=== PATIENT | male | born 1975 | race African-American/Black ===

== ENCOUNTER 2017-02-21 18:48 | Inpatient (IN) | payer MEDICAID, OTHER ==
[~2017-02-21] VITALS: Ht 180.3 cm; Wt 105.6 kg
[2017-02-21] MEDS ORDERED: ASPI-664 PO (20:14)
[2017-02-21] MEDS ORDERED: SOD CHLORIDE 0.9% 1,000 ML IV STA (20:17)
[2017-02-21] MEDS ORDERED: KETOROLAC 15 MG INJ IV STA (20:17)
[2017-02-21] MEDS ORDERED: LORAZEPAM 0.5 MG TAB PO ONE (20:30)
[2017-02-21] MEDS ORDERED: NICARDipine HCL 30 MG CAPSULE PO ONE ×2 (20:30→23:00)
[2017-02-21] MEDS ORDERED: NITROGLYCERIN (SL) 0.4 MG TAB SL ONE (20:30)
[2017-02-21] MEDS ORDERED: ASPIRIN 81 MG TAB PO ONE (20:30)
--- NOTE | 2017-02-21 20:35 | RADRPT ---
PROCEDURE: XR Chest. CLINICAL INDICATION: Chest and abdomen pain. TECHNIQUE: Single frontal view. COMPARISON: 02/13/2012. FINDINGS: The lungs are clear. The heart size is normal. There is no pleural effusion. There is no pneumothorax. IMPRESSION: 1. Normal chest radiograph. 2. No change from 02/13/2012. RPTAT: QQ .Ignacio Colmenares MD, MD Date Time Electronically viewed and signed by .Ignacio Colmenares MD, on 02/21/2017 20:35 .R/
[2017-02-21 20:48] LABS: BASOPHIL # 0.1 10^3/ul (0.0-0.1); BASOPHILS % 0.5 % (0.0-2.0); EOSINOPHILS # 0.2 10^3/ul (0.0-0.5); EOSINOPHILS % 1.7 % (0.0-7.0); HEMATOCRIT 45.6 % (42.0-52.0); HEMOGLOBIN 14.6 g/dl (14.0-18.0); LYMPHOCYTES # 2.6 10^3/ul (0.8-2.9); LYMPHOCYTES % 25.3 % (15.0-51.0); MEAN CORPUSCULAR HEMOGLOBIN 27.8 pg (29.0-33.0); MEAN CORPUSCULAR VOLUME 86.7 fl (82.0-101.0); MEAN PLATELET VOLUME 10.8 fl (7.4-10.4); MONOCYTE # 0.7 10^3/ul (0.3-0.9); MONOCYTES % 6.6 % (0.0-11.0); NEUTROPHIL # 6.9 10^3/ul (1.6-7.5); NEUTROPHILS % 65.6 % (39.0-77.0); PLATELET COUNT 234 10^3/UL (140-415); RED BLOOD COUNT 5.26 10^6/ul (4.70-6.10); RED CELL DISTRIBUTION WIDTH 13.3 % (11.5-14.5); WHITE BLOOD COUNT 10.5 10^3/ul (4.8-10.8)
[2017-02-21 21:05] LABS: ALANINE AMINOTRANSFERASE 53 IU/L (13-69); ALBUMIN 4.6 g/dl (3.3-4.9); ALBUMIN/GLOBULIN RATIO 1.48; ALKALINE PHOSPHATASE 105 IU/L (42-121); ANION GAP 15 (8-16); ASPARTATE AMINO TRANSFERASE 34 IU/L (15-46); BILIRUBIN,INDIRECT 0.2 mg/dl (0-1.1); BILIRUBIN,TOTAL 0.2 mg/dl (0.2-1.3); BLOOD UREA NITROGEN 10 mg/dl (7-20); CALCIUM 9.4 mg/dl (8.4-10.2); CARBON DIOXIDE 26 mmol/L (21-31); CHLORIDE 102 mmol/L (97-110); CREATININE 0.98 mg/dl (0.61-1.24); GLUCOSE 186 mg/dl (70-220); POTASSIUM 3.6 mmol/L (3.5-5.1); SODIUM 139 mmol/L (135-144); TOTAL PROTEIN 7.7 g/dl (6.1-8.1)
[2017-02-21 21:23] LABS: TROPONIN-I < 0.012 ng/ml (0.00-0.12)
[2017-02-21] MEDS ORDERED: ENALAPRILAT 1.25 MG INJ IV ONE (22:00)
--- NOTE | 2017-02-21 22:57 | ERA ---
ER Documentation Chief Complaint Date/Time DATE: 02/21/17 TIME: 22:49 Chief Complaint CP dizziness started at 1930 HPI 41-year-old man complains of elevated blood pressure, chest discomfort fingertip size to the right anterior chest, and dizziness 1 day. He states he has a long history of hypertension but has not used antihypertensives for over a year. Patient suffered an MS about 5 years and underwent PCI with stent placement. Patient states he uses aspirin daily. He denies calf or leg swelling, no shortness of breath, no loss of consciousness, no cough, no fevers or chills, no vomiting or diarrhea. ROS All systems reviewed and are negative except as per history of present illness. Medications Home Meds Reported Medications Aspirin* (Aspirin* EC) 81 Mg Tablet.dr, 81 MG PO DAILY, TAB 02/21/17 Allergies Allergies: Coded Allergies: iodine (Verified Allergy, Unknown, 02/21/17) PMhx/Soc CAD, MS, hypertension History of Surgery: Yes (S/P LEFT HEART CATH 2011) Anesthesia Reaction: No Hx Neurological Disorder: No Hx Respiratory Disorders: No Hx Cardiac Disorders: Yes (HTN, high cholesterol) Hx Psychiatric Problems: No Hx Miscellaneous Medical Probl: No Hx Alcohol Use: Yes Hx Substance Use: Yes (MARIJUANA quit 2011) Hx Tobacco Use: Yes (CIGARETTES quit 2011) Smoking Status: Former smoker FmHx Family History: No diabetes Physical Exam Vitals Vital Signs Date Time Temp Pulse Resp B/P Pulse Ox O2 Delivery O2 Flow Rate FiO2 02/21/17 21:31 101 16 199/113 99 Room Air 02/21/17 18:51 99.3 117 20 241/109 98 Physical Exam GENERAL: Well-developed, well-nourished, appears anxious, afebrile, hypertensive HEENT: Moist mucous membranes, pink conjunctiva, no cervical spine tenderness or step-off deformities, no goiter, no jaundice or icterus, extraocular movements intact without pain. No submandibular induration, and no pharyngeal erythema NEURO: Alert and oriented 3, cranial nerves II through XII intact bilaterally, pupils equal round reactive to light, no focal deficits or facial asymmetry, sensation intact distally Strength 5/5 in upper and lower extremities bilaterally CARDIAC: Tachycardic and regular, no murmurs rubs or gallops LUNGS: Clear bilaterally no wheezing crackles or stridor ABDOMEN: Soft nontender, no guarding, no rigidity, no rebound, no psoas sign no obturator sign. Normoactive bowel sounds SKIN: Warm and dry to touch, no abrasions, contusions, or hematomas, no lacerations, no ecchymosis, no target lesions, and without ulcers EXTREMITIES: No clubbing cyanosis or edema, calves are bilaterally symmetrical, no Homans sign, no popliteal cord sign. Distal pulses equal and bilateral PSYCH: Anxious Result Diagram: 02/21/17202902/21/172029 Results 24 hrs Laboratory Tests Test 02/21/17 20:30 White Blood Count 10.510^3/ul Red Blood Count 5.2610^6/ul Hemoglobin 14.6g/dl Hematocrit 45.6% Mean Corpuscular Volume 86.7fl Mean Corpuscular Hemoglobin 27.8pg Mean Corpuscular Hemoglobin Concent 32.0g/dl Red Cell Distribution Width 13.3% Platelet Count 61370^3/UL Mean Platelet Volume 10.8fl Neutrophils % 65.6% Lymphocytes % 25.3% Monocytes % 6.6% Eosinophils % 1.7% Basophils % 0.5% Nucleated Red Blood Cells % 0.0/100WBC Neutrophils # 6.910^3/ul Lymphocytes # 2.610^3/ul Monocytes # 0.710^3/ul Eosinophils # 0.210^3/ul Basophils # 0.110^3/ul Nucleated Red Blood Cells # 0.010^3/ul Sodium Level 139mmol/L Potassium Level 3.6mmol/L Chloride Level 102mmol/L Carbon Dioxide Level 26mmol/L Anion Gap 15 Blood Urea Nitrogen 10mg/dl Creatinine 0.98mg/dl Glucose Level 186mg/dl Calcium Level 9.4mg/dl Total Bilirubin 0.2mg/dl Direct Bilirubin 0.00mg/dl Indirect Bilirubin 0.2mg/dl Aspartate Amino Transf (AST/SGOT) 34IU/L Alanine Aminotransferase (ALT/SGPT) 53IU/L Alkaline Phosphatase 105IU/L Troponin I < 0.012ng/ml Total Protein 7.7g/dl Albumin 4.6g/dl Globulin 3.10g/dl Albumin/Globulin Ratio 1.48 Lipase 90U/L Current Medications Medications (Trade) Dose Ordered Sig/Josiah Route PRN Reason Start Time Stop Time Status Last Admin Dose Admin Nicardipine HCl (Cardene) 30 mg ONCE ONCE PO 02/21/17 20:30 02/21/17 20:31 DC 02/21/17 20:47 Nitroglycerin (Nitroglycerin (Sl Tab) 0.4 Mg) 1 tab ONCE ONCE SL 02/21/17 20:30 02/21/17 20:31 DC 02/21/17 20:47 Aspirin (Aspirin) 162 mg ONCE ONCE PO 02/21/17 20:30 02/21/17 20:31 DC 02/21/17 20:47 Lorazepam 0.5 mg 0.5 mg ONCE ONCE PO 02/21/17 20:30 02/21/17 20:31 DC 02/21/17 20:47 Sodium Chloride (NS) 1,000 ml @ 1,000 mls/hr Q1H STAT IV 02/21/17 20:17 02/21/17 21:16 DC 02/21/17 20:46 Ketorolac Tromethamine (Toradol) 15 mg ONCE STAT IV 02/21/17 20:17 02/21/17 20:19 DC 02/21/17 20:46 Enalaprilat (Vasotec Iv) 1.25 mg ONCE ONCE IV 02/21/17 22:00 02/21/17 22:01 DC 02/21/17 22:00 Procedures/[facility] IV line was established patient was placed on tin worker rhythm strip revealed a sinus tachycardia at 100 bpm. Patient was afebrile. EKG performed, read by me revealed a sinus tachycardia at 115 bpm, normal axis, narrow QRS complex with diffuse deep T-wave inversions and LVH and lead I, no concerning ST elevations or depressions noted. Chest X-ray 1V Interpreted by me: Soft Tissue: No acute abnormalities Bones: No acute abnormalities Mediastinum/Cardiac Silhouette/Lungs: No acute abnormalities I administered aspirin 162 mg p.o. for cardioprotective measures, nitroglycerin 0.4 mg sublingual, nicardipine 30 mg p.o. for hypertensive emergency, and lorazepam 0.5 mg p.o. for anxiety. Patient had continued hypertension with diastolic blood pressure over 110 mmHg, I treated him with enalapril 1.25 mg IV 1 and later with another dose of nicardipine 30 mg p.o. CBC and electrolytes were normal, liver function tests were normal, troponin was negative. Patient also received 1 L normal saline intravenously and Toradol 15 mg IV. Critical Care: Time: 43 minutes, this was time separate from other billable procedures. Treatments/Evaluations: Close monitoring and treatment of unstable vital signs, cardiorespiratory, and neurologic status, while maintaining tight balance of fluid, respiratory, and cardiac interventions. Patient will be admitted to telemetry setting for continued medical management cardiology consultation. Departure Diagnosis: Primary Impression: Hypertensive emergency Additional Impressions: CAD (coronary artery disease) Qualified Code: I25.10 - Coronary artery disease involving makah heart, angina presence unspecified, unspecified vessel or lesion type Chest pain Qualified Code: R07.9 - Chest pain, unspecified type Condition: GIANCARLO Scruggs MD Feb 21, 2017 22:57
[2017-02-21 23:14] VITALS: TEMP 99.3
[2017-02-22] VITALS (12 sets, daily range): BP systolic 138–170; BP diastolic 80–100; PULSE 72–111; RESP 18–20; Ht 180.3 cm; Wt 105.6 kg
[2017-02-22] MEDS ORDERED: ONDANSETRON 4 MG INJ IV PRN (01:30)
[2017-02-22] MEDS ORDERED: morphine 2 MG INJ IV PRN (01:30)
[2017-02-22] MEDS ORDERED: NITROGLYCERIN (SL) 0.4 MG TAB SL PRN (01:30)
[2017-02-22] MEDS: METOPROLOL 25 MG TAB PO SCH ×3 (01:43→22:06)
[2017-02-22 06:36] LABS: BASOPHIL # 0.1 10^3/ul (0.0-0.1); BASOPHILS % 0.6 % (0.0-2.0); EOSINOPHILS # 0.2 10^3/ul (0.0-0.5); EOSINOPHILS % 1.5 % (0.0-7.0); HEMATOCRIT 44.4 % (42.0-52.0); HEMOGLOBIN 13.8 g/dl (14.0-18.0); LYMPHOCYTES # 3.6 10^3/ul (0.8-2.9); LYMPHOCYTES % 35.5 % (15.0-51.0); MEAN CORPUSCULAR HGB CONC 31.1 g/dl (32.0-37.0); MEAN CORPUSCULAR VOLUME 86.9 fl (82.0-101.0); MEAN PLATELET VOLUME 10.1 fl (7.4-10.4); MONOCYTE # 0.6 10^3/ul (0.3-0.9); MONOCYTES % 6.4 % (0.0-11.0); NEUTROPHIL # 5.6 10^3/ul (1.6-7.5); NEUTROPHILS % 55.7 % (39.0-77.0); PLATELET COUNT 213 10^3/UL (140-415); RED BLOOD COUNT 5.11 10^6/ul (4.70-6.10); RED CELL DISTRIBUTION WIDTH 13.8 % (11.5-14.5)
--- NOTE | 2017-02-22 06:58 | HP ---
Date/Time of Note Date/Time of Note DATE: 02/22/17 TIME: 06:53 Assessment/Plan VTE Prophylaxis VTE Prophylaxis Intervention: heparin Lines/Catheters IV [facility]from [facility] Saline Lock Urinary Cath still in place: No Assessment/Plan Assessment/Plan 1. Chest pain, rule out ACS -Continue telemetry monitoring -Supplemental oxygen, aspirin, beta-win, statin with as needed nitro morphine -2D echo and cardiology consult 2. Hypertensive urgency: BP better controlled now -Continue antihypertensives with adjustment as needed HPI/ROS Admit Date/Time Admit Date/Time Feb 21, 2017 at 22:06 Hx of Present Illness This is a 41-year-old male with a history of CAD with stent 2012 and hypertension who presented to the emergency department complaining of chest pain 1 day. Pain is slightly right-sided with no radiation. Reported associated lightheadedness and diaphoresis. When he presented to the ER his blood pressure was 241/109. He has not been taking his antihypertensive for over a year. He has however been taking low- dose aspirin daily. EKG shows no ST-T wave abnormalities and first troponin is negative. Chest x-ray was no active cardiopulmonary disease. PMH/Family/Social Past Medical History Medical History: coronary artery disease, hypertension Past Surgical History Past Surgical Hx: other (Coronary artery stent placement) Social History Alcohol Use: none Smoking Status: Former smoker Drug Use: none Exam/Review of Systems Vital Signs Vitals Vital Signs Date Time Temp Pulse Resp B/P Pulse Ox O2 Delivery O2 Flow Rate FiO2 02/22/17 04:25 82 02/22/17 04:00 98.0 18 138/80 Room Air 02/21/17 23:34 98 Intake and Output 02/21/17 02/21/17 02/22/17 15:00 23:00 07:00 Intake Total 0 ml Balance 0 ml Exam Constitutional: alert, oriented, well developed Head: atraumatic, normocephalic Eyes: EOMI, PERRL Respiratory: clear to auscultation, normal air movement Cardiovascular: nl pulses, regular rate and rhythm Gastrointestinal: soft Extremities: normal pulses Labs Result Diagram: 02/22/17 0604 02/21/17 2030 Medications Medications Current Medications Metoprolol Tartrate (Lopressor) 25 mg BID PO Last administered on 02/22/17t 01 :43; Admin Dose 25 MG; Start 02/22/17 at 01:30 Aspirin (Aspirin) 81 mg DAILY PO ; Start 02/22/17 at 09:00 Nitroglycerin (Nitroglycerin (Sl Tab) 0.4 Mg) 1 tab Q5M PRN SL ANGINA; Start 02/22/17 at 01:30 Morphine Sulfate (morphine) 2 mg Q4H PRN IV PAIN; Start 02/22/17 at 01:30 Ondansetron HCl (Zofran Inj) 4 mg Q6H PRN IV NAUSEA AND/OR VOMITING; Start at 01:30 Heparin Sodium (Porcine) (Heparin (5000 Units/0.5 ml)) 5,000 unit BID SC ; Start 02/22/17 at 09:00 Clonidine (Catapres) 0.1 mg Q6H PRN PO ELEVATED BLOOD PRESSURE; Start at 01:30 FARHAN GOTTLIEB MD Feb 22, 2017 06:58
[2017-02-22 07:14] LABS: ALBUMIN 3.8 g/dl (3.3-4.9); ALBUMIN/GLOBULIN RATIO 1.15; BILIRUBIN,INDIRECT 0.4 mg/dl (0-1.1); BILIRUBIN,TOTAL 0.4 mg/dl (0.2-1.3); CALCIUM 9.5 mg/dl (8.4-10.2); CREATININE 0.84 mg/dl (0.61-1.24); MAGNESIUM 1.9 mg/dl (1.7-2.5); POTASSIUM 3.9 mmol/L (3.5-5.1); TOTAL PROTEIN 7.1 g/dl (6.1-8.1)
[2017-02-22 07:15] LABS: CHOL/HDL RATIO 7.3 RATIO; PHOSPHORUS 3.5 mg/dl (2.5-4.9)
[2017-02-22] MEDS: ASPIRIN 81 MG TAB PO SCH (08:45)
[2017-02-22] MEDS: HEPARIN 5,000 UNIT/0.5 ML VIAL SC SCH ×2 (08:56→22:07)
[2017-02-22] MEDS ORDERED: GLUCAGON 1 MG INJ IM PRN (11:00)
[2017-02-22] MEDS ORDERED: DEXTROSE 50% 50 ML SYRINGE IV PRN ×2 (11:00)
[2017-02-22] MEDS ORDERED: GLUCOSE GEL 15 GRAM TUBE PO PRN ×2 (11:00)
[2017-02-22] MEDS ORDERED: GLUCOSE GEL 15 GRAM TUBE BUCCAL PRN (11:00)
[2017-02-22] MEDS ORDERED: LISINOPRIL 5 MG TAB PO SCH (11:30)
[2017-02-22] MEDS: INSULIN ASPART [NOVOLOG] 3 ML PEN SC SCH ×3 (11:50→22:18)
--- NOTE | 2017-02-22 15:23 | PN ---
Date/Time of Note Date/Time of Note DATE: 02/22/17 TIME: 15:22 Assessment/Plan VTE Prophylaxis VTE Prophylaxis Intervention: heparin Lines/Catheters [facility] Saline Lock Urinary Cath still in place: No Assessment/Plan Chief Complaint/Hosp Course Patient is a 41-year-old -[place] male with a past medical history of coronary artery disease with stent placement 2011 and uncontrolled hypertension who presents to the ED complaining of chest pain for 1 day on the right side. Patient admitted for chest pain and hypertensive urgency Assessment and plan Chest pain Hypertensive urgency Medical noncompliance Coronary artery disease -Cardiology consulted, recommendations appreciated -Patient stated that he ran out of insurance which is why he stopped his blood pressure medication -Restart beta-win, ALMA inhibitor. As needed medications for elevated blood pressure will adjust dosing as needed -Cholesterol elevated, LDL not at goal, restart atorvastatin -Patient's hemoglobin A1c is high, diabetic crm consultant has seen patient, will follow, likely DC with metformin -Continue troponin troponins, negative for now -Echocardiogram -Counseled patient on affordability of generic medications Problems: Subjective 24 Hr Interval Summary Free Text/Dictation no acute complaints Exam/Review of Systems Vital Signs Vitals Vital Signs Date Time Temp Pulse Resp B/P Pulse Ox O2 Delivery O2 Flow Rate FiO2 02/22/17 12:59 98.5 83 19 170/100 97 02/22/17 04:00 Room Air Intake and Output 02/21/17 02/21/17 02/22/17 14:59 22:59 06:59 Intake Total 0 ml Balance 0 ml Exam Physical exam General: Patient is laying in bed and answers questions appropriately Mentation: Patient is alert and oriented 4, Head: Normocephalic atraumatic Eyes: EOMI, pupils reactive to light Neck: Supple, nontender, midline Respiratory: Clear to auscultation bilaterally Cardiovascular: regular rate, no obvious murmurs Gastrointestinal: non-tender to palpation, bowel sounds heard. Neurological: Moves all extremities spontaneously Skin: No new skin lesions Results Result Diagram: 02/22/17 0604 02/22/17 0604 Results 24 hrs Laboratory Tests Test 02/21/17 20:30 02/22/17 02:28 02/22/17 06:04 02/22/17 07:39 White Blood Count 10.5 10.0 Red Blood Count 5.26 5.11 Hemoglobin 14.6 13.8 L Hematocrit 45.6 44.4 Mean Corpuscular Volume 86.7 86.9 Mean Corpuscular Hemoglobin 27.8 L 27.0 L Mean Corpuscular Hemoglobin Concent 32.0 31.1 L Red Cell Distribution Width 13.3 13.8 Platelet Count 234 213 Mean Platelet Volume 10.8 H 10.1 Neutrophils % 65.6 55.7 Lymphocytes % 25.3 35.5 Monocytes % 6.6 6.4 Eosinophils % 1.7 1.5 Basophils % 0.5 0.6 Nucleated Red Blood Cells % 0.0 0.0 Neutrophils # 6.9 5.6 Lymphocytes # 2.6 3.6 H Monocytes # 0.7 0.6 Eosinophils # 0.2 0.2 Basophils # 0.1 0.1 Nucleated Red Blood Cells # 0.0 0.0 Sodium Level 139 139 Potassium Level 3.6 3.9 Chloride Level 102 105 Carbon Dioxide Level 26 28 Anion Gap 15 10 # Blood Urea Nitrogen 10 8 Creatinine 0.98 0.84 Glucose Level 186 117 # Calcium Level 9.4 9.5 Total Bilirubin 0.2 0.4 Direct Bilirubin 0.00 0.00 Indirect Bilirubin 0.2 0.4 Aspartate Amino Transf (AST/SGOT) 34 28 Alanine Aminotransferase (ALT/SGPT) 53 47 Alkaline Phosphatase 105 90 Troponin I < 0.012 < 0.012 Total Protein 7.7 7.1 Albumin 4.6 3.8 Globulin 3.10 3.30 H Albumin/Globulin Ratio 1.48 1.15 Lipase 90 Hemoglobin A1c 7.5 H Phosphorus Level 3.5 Magnesium Level 1.9 Triglycerides Level 111 Cholesterol Level 199 LDL Cholesterol, Calculated 150 HDL Cholesterol 27 Cholesterol/HDL Ratio 7.3 Bedside Glucose 116 Test 02/22/17 11:03 02/22/17 12:06 Troponin I < 0.012 Bedside Glucose 122 Medications Medications Current Medications Metoprolol Tartrate (Lopressor) 25 mg BID PO Last administered on 02/22/17 08 :45; Admin Dose 25 MG; Start 02/22/17 at 01:30 Aspirin (Aspirin) 81 mg DAILY PO Last administered on 02/22/17 08:45; Admin Dose 81 MG; Start 02/22/17 at 09:00 Nitroglycerin (Nitroglycerin (Sl Tab) 0.4 Mg) 1 tab Q5M PRN SL ANGINA; Start 02/22/17 at 01:30 Morphine Sulfate (morphine) 2 mg Q4H PRN IV PAIN; Start 02/22/17 at 01:30 Ondansetron HCl (Zofran Inj) 4 mg Q6H PRN IV NAUSEA AND/OR VOMITING; Start at 01:30 Heparin Sodium (Porcine) (Heparin (5000 Units/0.5 ml)) 5,000 unit BID SC Last administered on 02/22/17t 08:56; Admin Dose 5,000 UNIT; Start 02/22/17 at 09: 00 Clonidine (Catapres) 0.1 mg Q6H PRN PO ELEVATED BLOOD PRESSURE; Start at 01:30 Diagnostic Test (Pha) (Accu-Chek) 1 ea 02 XX ; Start 02/23/17 at 02:00 Diagnostic Test (Pha) (Accu-Chek) 1 ea 02 XX ; Start 02/23/17 at 02:00 Miscellaneous Information 1 ea NOTE XX ; Start 02/22/17 at 11:00 Glucose (Glutose) 15 gm Q15M PRN PO DECREASED GLUCOSE; Start 02/22/17 at 11:00 Glucose (Glutose) 22.5 gm Q15M PRN PO DECREASED GLUCOSE; Start 02/22/17 at 11: 00 Dextrose (D50w Syringe) 25 ml Q15M PRN IV DECREASED GLUCOSE; Start 02/22/17 at 11:00 Dextrose (D50w Syringe) 50 ml Q15M PRN IV DECREASED GLUCOSE; Start 02/22/17 at 11:00 Glucagon (Glucagen) 1 mg Q15M PRN IM DECREASED GLUCOSE; Start 02/22/17 at 11: 00 Glucose (Glutose) 15 gm Q15M PRN BUCCAL DECREASED GLUCOSE; Start 02/22/17 at 11:00 Atorvastatin Calcium (Lipitor) 40 mg HS PO ; Start 02/22/17 at 21:00 Lisinopril (Zestril) 20 mg DAILY PO ; Start 02/23/17 at 09:00 Lisinopril (Zestril) 15 mg ONCE ONCE PO ; Start 02/22/17 at 15:30; Stop 02/22 at 15:31 Labetalol HCl (Labetalol) 10 mg Q4 PRN IV SBP>160; Start 02/22/17 at 15:30 GIANCARLO BELL Feb 22, 2017 15:23
[2017-02-22] MEDS ORDERED: LISINOPRIL 5 MG TAB PO ONE (15:30)
[2017-02-22] MEDS ORDERED: LABETALOL HCL 20MG INJ IV PRN (15:30)
[2017-02-22] MEDS ORDERED: hydrALAzine 20 MG INJ IV PRN (17:30)
--- NOTE | 2017-02-22 21:10 | RADRPT ---
Echocardiogram Report Patient Name: SHER LUCIO Gender: Male Date: 1975 Study Date: 22-Feb-2017 Plant Maintenance Technician: Nicole [facility] Location: [address] Ref. Physician: FARHAN GOTTLIEB Quality: Adequate Procedures: Transthoracic echocardiogram with complete 2D, M-Mode, and doppler examination. Indications: Chest Pain. 2D/M Mode Doppler Measurement Value Normal Ranges Measurement Value Normal Ranges LVIDd 2D 4.4 3.5 - 5.6 cm AV Peak Yoseph 1.4 m/sec LVIDs 2D 3.0 2.1 - 4.1 cm AV Peak PG 8.0 mmHg FS 2D 32.0 % LVOT Peak Yoseph 1.1 m/sec LVPWd 2D 1.5 0.6 - 1.1 cm LVOT Peak PG 5.0 mmHg IVSd 2D 1.5 0.6 - 1.1 cm MV E Peak Yoseph 0.8 m/sec IVS/LVPW 2D 1.0 MV A Peak Yoseph 1.2 m/sec AoR Diam 2D 3.4 2.0 - 3.7 cm MV E/A 0.7 LA/Ao 2D 1 0 - 1 MV Decel Time 116 msec EDV 2D 85.2 cm3 MV E/A 0.7 ESV 2D 26.7 cm3 TR Peak Yoseph 2.4 m/sec LA Dimen 2D 4.2 2.3 - 4.0 cm TR Peak PG 24.0 mmHg RVSP 27.0 mmHg Findings Left Ventricle: Lower limits of normal systolic function. Normal left ventricular cavity size. Ejection fraction is visually estimated at 5055 %. Abnormal Diastolic Function. Right Ventricle: Normal right ventricular size. Normal right ventricular systolic function. Left Atrium: There is mild enlargement of left atrium. Right Atrium: The right atrium is normal in size. Mitral Valve: Normal appearance and function of the mitral valve with trace physiologic regurgitation. Aortic Valve: Normal appearance of the aortic valve. No significant aortic stenosis or insufficiency. Tricuspid Valve: Normal appearance of the tricuspid valve. Estimated peak PA systolic pressure 27 mmHg. There is mild tricuspid regurgitation. Pericardium: Normal pericardium with no significant pericardial effusion. Aorta: Normal aortic root. IVC: Normal size and normal respiratory collapse consistent with normal right atrial pressure. Conclusions 1.Lower limits of normal systolic function. Normal left ventricular cavity size. Ejection fraction is visually estimated at 50-55 %. Abnormal Diastolic Function. 2.There is mild enlargement of left atrium. 3.Normal appearance and function of the mitral valve with trace physiologic regurgitation. 4.Normal appearance of the tricuspid valve. Estimated peak PA systolic pressure 27 mmHg. There is mild tricuspid regurgitation. Electronically Signed By: Reynaldo Levi 22-Feb-2017 21:09:21 -0700 Patient Name: SHER LUCIO Study Date: 22-Feb-2017 [id number]
[2017-02-22] MEDS: ATORVASTATIN 40 MG TAB PO SCH (22:04)
[2017-02-22] MEDS: LISINOPRIL 20 MG TAB PO SCH (22:05)
[2017-02-22] MEDS: ACCU-CHEK XX SCH (22:21)
[2017-02-23] VITALS (13 sets, daily range): BP systolic 144–174; BP diastolic 84–99; PULSE 62–75; RESP 17–18
[2017-02-23] MEDS ORDERED: ACCU-CHEK XX SCH (02:00)
--- NOTE | 2017-02-23 05:30 | CONS ---
DATE OF ADMISSION: 02/21/2017 DATE OF CONSULTATION: 02/22/2017 TYPE OF CONSULTATION: Cardiology. REASON FOR CONSULTATION: Chest pain, assess for acute coronary syndrome. REQUESTING PHYSICIAN: Dr. Renee from the hospital service. HISTORY OF PRESENT ILLNESS: Mr. Weathers is a 41-year-old male with a history of coronary artery disease, prior myocardial infarction in 2011 with subsequent stents, hypertension, who initially presented with complaints of right-sided chest pain occurring at rest, described as a stabbing sensation with some radiation to his right fingers with numbness and tingling. Upon arrival, temperature 99.3, blood pressure markedly elevated at 241/109, pulse 70, respiratory rate 20, saturating 98%. Patient's labs showed white count 10.5, platelet count 234. Sodium 139, potassium 3.6, creatinine 0.98. BUN 10. Troponin negative. AST 34, ALT 53, lipase 90. Chest x-ray negative. There is no electrocardiogram for my review at this time. The patient denies ongoing chest pain at this time. The patient's blood pressures continue to remain significantly elevated at 160 to 170s systolic. PAST MEDICAL HISTORY: As above in HPI. MEDICATIONS CURRENTLY IN HOSPITAL: 1. Lisinopril 20 mg daily. 2. Lipitor 40 mg at bedtime. 3. Labetalol. 4. Heparin 5000 subQ b.i.d. 5. Metoprolol 25 mg p.o. b.i.d. 6. Morphine p.r.n. 7. Zofran p.r.n. ALLERGIES: IODINE. SOCIAL HISTORY: No current tobacco, ETOH or illicit drug use. FAMILY HISTORY: No history of sudden cardiac or early CAD. REVIEW OF SYSTEMS: As above in HPI. CONSTITUTIONAL: No fevers, chills. PULMONARY: No current shortness of breath. CARDIOVASCULAR: No current chest pain, but on admit. GASTROINTESTINAL: No vomiting. GENITOURINARY: No hematuria. MUSCULOSKELETAL: Degenerative joint disease. PSYCHIATRIC: The patient denies depression. NEUROLOGIC: No documented history of CVA. PHYSICAL EXAMINATION VITAL SIGNS: Temperature of 98.6, blood pressure most recently 161/90, pulse 84 , respiratory rate 19, satting 97%. GENERAL: The patient is alert, awake, in no acute distress. NECK: JVP approximately 8 to 9 cm water. CHEST: Fair air movement throughout. HEART: Regular rate and rhythm. Normal S1, S2, I/ systolic murmur, nondisplaced PMI. ABDOMEN: Positive bowel sounds, soft. EXTREMITIES: No pitting edema, 1+ pulses bilaterally, posterior tibial. LABORATORIES: As above in HPI with most recently from today, sodium 139, creatinine 0.84, BUN of 8. Troponin negative x3. White blood cell count 10, hemoglobin 13.8, platelet count of 213. IMAGING STUDIES: As above in HPI. No further imaging studies for my review at this time. ELECTROCARDIOGRAM: Not available in chart for my review at this time. IMPRESSION: 1. Chest pain, assess for acute coronary syndrome. 2. Hypertensive urgency emergency. 3. History of prior percutaneous transluminal coronary angiography and stent placement in 2011. 4. History of myocardial infarction in 2011. 5. Dyslipidemia with low HDL. RECOMMENDATIONS: 1. At this time, would maintain the patient on telemetry monitoring to follow rhythm and rate closely. 2. Would check serial EKGs to assess for any significant ongoing changes, an EKG in the morning, EKG for chanes in rhythm or development of chest pain 3. Continue the patient's current Zestril with further up titration and beta win as necessary to improve overall systolic blood pressure control. 4. Continue the patient's current statin therapy. 5. Would place the patient on aspirin. 6. We will follow the patient's 2D echo done for assessment of ejection fraction, wall motion and major valve abnormalities and pending the results of the patient's EKG analysis and 2D echo, the patient will likely benefit from a cardiac stress test, which can likely be done as an outpatient versus inpatient depending on ongoing features. Thank you for allowing me to take part in the care of this patient. I will continue to follow along very closely with you. Further recommendations will be made as the patient progresses through his inpatient hospital course. Dictated By: ANGEL CARRERO/MAGAN Conf#: [id number] DID#: [id number] CC: FARHAN RENEE MD;*EndCC* MTDD
[2017-02-23 06:35] LABS: BASOPHIL # 0.1 10^3/ul (0.0-0.1); BASOPHILS % 0.5 % (0.0-2.0); EOSINOPHILS # 0.2 10^3/ul (0.0-0.5); HEMATOCRIT 45.9 % (42.0-52.0); HEMOGLOBIN 14.1 g/dl (14.0-18.0); LYMPHOCYTES # 3.5 10^3/ul (0.8-2.9); MEAN CORPUSCULAR HEMOGLOBIN 27.2 pg (29.0-33.0); MEAN CORPUSCULAR HGB CONC 30.7 g/dl (32.0-37.0); MEAN CORPUSCULAR VOLUME 88.6 fl (82.0-101.0); MEAN PLATELET VOLUME 10.1 fl (7.4-10.4); MONOCYTE # 0.8 10^3/ul (0.3-0.9); MONOCYTES % 7.6 % (0.0-11.0); NEUTROPHIL # 6.1 10^3/ul (1.6-7.5); NEUTROPHILS % 56.7 % (39.0-77.0); PLATELET COUNT 213 10^3/UL (140-415); RED BLOOD COUNT 5.18 10^6/ul (4.70-6.10); WHITE BLOOD COUNT 10.7 10^3/ul (4.8-10.8)
[2017-02-23 07:16] LABS: CALCIUM 10.1 mg/dl (8.4-10.2); CREATININE 0.98 mg/dl (0.61-1.24); MAGNESIUM 1.9 mg/dl (1.7-2.5); PHOSPHORUS 3.6 mg/dl (2.5-4.9); POTASSIUM 4.5 mmol/L (3.5-5.1)
[2017-02-23] MEDS: INSULIN ASPART [NOVOLOG] 3 ML PEN SC SCH ×4 (07:55→20:39)
[2017-02-23] MEDS: ASPIRIN 81 MG TAB PO SCH (08:14)
[2017-02-23] MEDS: LISINOPRIL 20 MG TAB PO SCH ×2 (08:15→20:25)
[2017-02-23] MEDS: METOPROLOL 25 MG TAB PO SCH (08:15)
[2017-02-23] MEDS: HEPARIN 5,000 UNIT/0.5 ML VIAL SC SCH ×2 (08:22→20:26)
[2017-02-23] MEDS ORDERED: LISINOPRIL 20 MG TAB PO SCH (09:00)
--- NOTE | 2017-02-23 12:41 | CONS ---
Date/Time of Note Date/Time of Note DATE: 02/23/17 TIME: 12:39 Assessment/Plan Assessment/Plan Additional Assessment/Plan 1. Chest pain, assess for acute coronary syndrome - r/o [place], doubt acute ischemia. 2. Hypertensive urgency emergency - BP better - con't to add therapy. 3. History of prior percutaneous transluminal coronary angiography and stent placement in 2011. DR. Levi to follow as outpt. 4. History of myocardial infarction in 2011. 5. Dyslipidemia with low HDL. Consultation Date/Type/Reason Admit Date/Time Feb 21, 2017 at 22:06 Initial Consult Date 24 HR Interval Summary Free Text/Dictation Better now - add more BP therapy now. ROS: No fever, no chills, no nausea, no vomiting, no diarrhea/constipation No recent weight changes No chest pain, no PND, no orthopnea No dizziness, blurred vision No thirst, no heat or cold intolerance Exam/Review of Systems Vital Signs Vitals Vital Signs Date Time Temp Pulse Resp B/P Pulse Ox O2 Delivery O2 Flow Rate FiO2 02/23/17 11:10 98.3 70 17 161/90 98 02/22/17 04:00 Room Air Intake and Output 02/22/17 02/22/17 02/23/17 15:00 23:00 07:00 Intake Total 500 ml 480 ml Balance 500 ml 480 ml Exam General: WN/WD/NAD, AOx 3 HEENT: Unicetric/atraumatic/EOMI (follow commands) NECK: JVD elevated, no thyromegaly Lymph: no lymphadenopathy HEART: regular with no S3, II/ systolic murmur at apex LUNGS: Coarse sounds ABD: soft, NT, ND, +BS : Intact Neuro: non focal SKIN: chronic changes EXT: trace edema Results Result Diagram: 02/23/17 0606 02/23/17 0606 Results 24 hrs Laboratory Tests Test 02/22/17 17:59 02/22/17 22:18 02/23/17 06:06 02/23/17 08:11 Bedside Glucose 104 127 121 White Blood Count 10.7 Red Blood Count 5.18 Hemoglobin 14.1 Hematocrit 45.9 Mean Corpuscular Volume 88.6 Mean Corpuscular Hemoglobin 27.2 L Mean Corpuscular Hemoglobin Concent 30.7 L Red Cell Distribution Width 14.0 Platelet Count 213 Mean Platelet Volume 10.1 Neutrophils % 56.7 Lymphocytes % 33.0 Monocytes % 7.6 Eosinophils % 2.0 Basophils % 0.5 Nucleated Red Blood Cells % 0.0 Neutrophils # 6.1 Lymphocytes # 3.5 H Monocytes # 0.8 Eosinophils # 0.2 Basophils # 0.1 Nucleated Red Blood Cells # 0.0 Sodium Level 133 L Potassium Level 4.5 Chloride Level 103 Carbon Dioxide Level 28 Anion Gap 7 L Blood Urea Nitrogen 10 Creatinine 0.98 Glucose Level 130 Calcium Level 10.1 Phosphorus Level 3.6 Magnesium Level 1.9 Troponin I < 0.012 Test 02/23/17 11:26 Bedside Glucose 124 Medications Medications Current Medications Aspirin (Aspirin) 81 mg DAILY PO Last administered on 02/23/17 08:14; Admin Dose 81 MG; Start 02/22/17 at 09:00 Nitroglycerin (Nitroglycerin (Sl Tab) 0.4 Mg) 1 tab Q5M PRN SL ANGINA; Start 02/22/17 at 01:30 Morphine Sulfate (morphine) 2 mg Q4H PRN IV PAIN; Start 02/22/17 at 01:30 Ondansetron HCl (Zofran Inj) 4 mg Q6H PRN IV NAUSEA AND/OR VOMITING; Start at 01:30 Heparin Sodium (Porcine) (Heparin (5000 Units/0.5 ml)) 5,000 unit BID SC Last administered on 02/23/17 08:22; Admin Dose 5,000 UNIT; Start 02/22/17 at 09: 00 Clonidine (Catapres) 0.1 mg Q6H PRN PO ELEVATED BLOOD PRESSURE Last administered on 02/23/17 00:39; Admin Dose 0.1 MG; Start 02/22/17 at 01:30 Diagnostic Test (Pha) (Accu-Chek) 1 ea 02 XX ; Start 02/23/17 at 02:00 Miscellaneous Information 1 ea NOTE XX ; Start 02/22/17 at 11:00 Glucose (Glutose) 15 gm Q15M PRN PO DECREASED GLUCOSE; Start 02/22/17 at 11:00 Glucose (Glutose) 22.5 gm Q15M PRN PO DECREASED GLUCOSE; Start 02/22/17 at 11: 00 Dextrose (D50w Syringe) 25 ml Q15M PRN IV DECREASED GLUCOSE; Start 02/22/17 at 11:00 Dextrose (D50w Syringe) 50 ml Q15M PRN IV DECREASED GLUCOSE; Start 02/22/17 at 11:00 Glucagon (Glucagen) 1 mg Q15M PRN IM DECREASED GLUCOSE; Start 02/22/17 at 11: 00 Glucose (Glutose) 15 gm Q15M PRN BUCCAL DECREASED GLUCOSE; Start 02/22/17 at 11:00 Atorvastatin Calcium (Lipitor) 40 mg HS PO Last administered on 02/22/17 22: 04; Admin Dose 40 MG; Start 02/22/17 at 21:00 Labetalol HCl (Labetalol) 10 mg Q4 PRN IV SBP>160; Start 02/22/17 at 15:30 Lisinopril (Zestril) 20 mg BID PO Last administered on 02/23/17 08:15; Admin Dose 20 MG; Start 02/22/17 at 21:00 Hydralazine HCl (Apresoline) 10 mg Q6 PRN IV SBP>170; Start 02/22/17 at 17:30 Carvedilol (Coreg) 12.5 mg BID PO ; Start 02/23/17 at 21:00 DAYAMI JONAS MD Feb 23, 2017 12:41
--- NOTE | 2017-02-23 15:06 | PN ---
Date/Time of Note Date/Time of Note DATE: 02/23/17 TIME: 15:04 Assessment/Plan VTE Prophylaxis VTE Prophylaxis Intervention: ambulation, SCD's Lines/Catheters [facility] Assessment/Plan Chief Complaint/Hosp Course Patient is a 41-year-old -[place] male with a past medical history of coronary artery disease with stent placement 2011 and uncontrolled hypertension who presents to the ED complaining of chest pain for 1 day on the right side. Patient admitted for chest pain and hypertensive urgency Assessment and plan Chest pain Hypertensive urgency Medical noncompliance Coronary artery disease -Cardiology consulted, recommendations appreciated -Patient stated that he ran out of insurance which is why he stopped his blood pressure medication -Restart beta-win, ALAM inhibitor. change to coreg instead of metoprolol for more BP control -increasing alma inhibitor dose. -Cholesterol elevated, LDL not at goal, restart atorvastatin -Patient's hemoglobin A1c is high, diabetic weight loss sales consultant has seen patient, will follow, likely DC with metformin -Continue troponin troponins, negative for now -Echocardiogram -Counseled patient on affordability of generic medications Problems: Subjective 24 Hr Interval Summary Free Text/Dictation no acute complaints Exam/Review of Systems Vital Signs Vitals Vital Signs Date Time Temp Pulse Resp B/P Pulse Ox O2 Delivery O2 Flow Rate FiO2 02/23/17 12:41 68 02/23/17 11:10 98.3 17 161/90 98 02/22/17 04:00 Room Air Intake and Output 02/22/17 02/22/17 02/23/17 14:59 22:59 06:59 Intake Total 500 ml 480 ml Balance 500 ml 480 ml Exam Physical exam General: Patient is laying in bed and answers questions appropriately Mentation: Patient is alert and oriented 4, Head: Normocephalic atraumatic Eyes: EOMI, pupils reactive to light Neck: Supple, nontender, midline Respiratory: Clear to auscultation bilaterally Cardiovascular: regular rate, no obvious murmurs Gastrointestinal: non-tender to palpation, bowel sounds heard. Neurological: Moves all extremities spontaneously Skin: No new skin lesions Results Result Diagram: 02/23/17 0606 02/23/17 0606 Results 24 hrs Laboratory Tests Test 02/22/17 17:59 02/22/17 22:18 02/23/17 06:06 02/23/17 08:11 Bedside Glucose 104 127 121 White Blood Count 10.7 Red Blood Count 5.18 Hemoglobin 14.1 Hematocrit 45.9 Mean Corpuscular Volume 88.6 Mean Corpuscular Hemoglobin 27.2 L Mean Corpuscular Hemoglobin Concent 30.7 L Red Cell Distribution Width 14.0 Platelet Count 213 Mean Platelet Volume 10.1 Neutrophils % 56.7 Lymphocytes % 33.0 Monocytes % 7.6 Eosinophils % 2.0 Basophils % 0.5 Nucleated Red Blood Cells % 0.0 Neutrophils # 6.1 Lymphocytes # 3.5 H Monocytes # 0.8 Eosinophils # 0.2 Basophils # 0.1 Nucleated Red Blood Cells # 0.0 Sodium Level 133 L Potassium Level 4.5 Chloride Level 103 Carbon Dioxide Level 28 Anion Gap 7 L Blood Urea Nitrogen 10 Creatinine 0.98 Glucose Level 130 Calcium Level 10.1 Phosphorus Level 3.6 Magnesium Level 1.9 Troponin I < 0.012 Test 02/23/17 11:26 Bedside Glucose 124 Medications Medications Current Medications Aspirin (Aspirin) 81 mg DAILY PO Last administered on 02/23/17 08:14; Admin Dose 81 MG; Start 02/22/17 at 09:00 Nitroglycerin (Nitroglycerin (Sl Tab) 0.4 Mg) 1 tab Q5M PRN SL ANGINA; Start 02/22/17 at 01:30 Morphine Sulfate (morphine) 2 mg Q4H PRN IV PAIN; Start 02/22/17 at 01:30 Ondansetron HCl (Zofran Inj) 4 mg Q6H PRN IV NAUSEA AND/OR VOMITING; Start at 01:30 Heparin Sodium (Porcine) (Heparin (5000 Units/0.5 ml)) 5,000 unit BID SC Last administered on 02/23/17 08:22; Admin Dose 5,000 UNIT; Start 02/22/17 at 09: 00 Clonidine (Catapres) 0.1 mg Q6H PRN PO ELEVATED BLOOD PRESSURE Last administered on 02/23/17 00:39; Admin Dose 0.1 MG; Start 02/22/17 at 01:30 Diagnostic Test (Pha) (Accu-Chek) 1 ea 02 XX ; Start 02/23/17 at 02:00 Miscellaneous Information 1 ea NOTE XX ; Start 02/22/17 at 11:00 Glucose (Glutose) 15 gm Q15M PRN PO DECREASED GLUCOSE; Start 02/22/17 at 11:00 Glucose (Glutose) 22.5 gm Q15M PRN PO DECREASED GLUCOSE; Start 02/22/17 at 11: 00 Dextrose (D50w Syringe) 25 ml Q15M PRN IV DECREASED GLUCOSE; Start 02/22/17 at 11:00 Dextrose (D50w Syringe) 50 ml Q15M PRN IV DECREASED GLUCOSE; Start 02/22/17 at 11:00 Glucagon (Glucagen) 1 mg Q15M PRN IM DECREASED GLUCOSE; Start 02/22/17 at 11: 00 Glucose (Glutose) 15 gm Q15M PRN BUCCAL DECREASED GLUCOSE; Start 02/22/17 at 11:00 Atorvastatin Calcium (Lipitor) 40 mg HS PO Last administered on 02/22/17 22: 04; Admin Dose 40 MG; Start 02/22/17 at 21:00 Labetalol HCl (Labetalol) 10 mg Q4 PRN IV SBP>160 Last administered on 14:48; Admin Dose 10 MG; Start 02/22/17 at 15:30 Lisinopril (Zestril) 20 mg BID PO Last administered on 02/23/17 08:15; Admin Dose 20 MG; Start 02/22/17 at 21:00 Hydralazine HCl (Apresoline) 10 mg Q6 PRN IV SBP>170; Start 02/22/17 at 17:30 Carvedilol (Coreg) 12.5 mg BID PO ; Start 02/23/17 at 21:00 Minoxidil (Loniten) 5 mg BID PO ; Start 02/23/17 at 21:00 GIANCARLO BELL Feb 23, 2017 15:05
[2017-02-23] MEDS: ATORVASTATIN 40 MG TAB PO SCH (20:23)
[2017-02-23] MEDS: MINOXIDIL 2.5 MG TAB PO SCH (20:24)
[2017-02-23] MEDS: ACCU-CHEK XX SCH (20:39)
[2017-02-24] VITALS (12 sets, daily range): BP systolic 118–184; BP diastolic 66–101; PULSE 63–85; RESP 16–18
[2017-02-24 06:37] LABS: BASOPHIL # 0.1 10^3/ul (0.0-0.1); BASOPHILS % 0.8 % (0.0-2.0); EOSINOPHILS # 0.2 10^3/ul (0.0-0.5); HEMOGLOBIN 14.7 g/dl (14.0-18.0); LYMPHOCYTES # 4.2 10^3/ul (0.8-2.9); LYMPHOCYTES % 36.7 % (15.0-51.0); MEAN CORPUSCULAR HEMOGLOBIN 27.3 pg (29.0-33.0); MEAN CORPUSCULAR HGB CONC 30.6 g/dl (32.0-37.0); MEAN CORPUSCULAR VOLUME 89.1 fl (82.0-101.0); MEAN PLATELET VOLUME 10.2 fl (7.4-10.4); MONOCYTE # 0.8 10^3/ul (0.3-0.9); MONOCYTES % 6.6 % (0.0-11.0); NEUTROPHIL # 6.1 10^3/ul (1.6-7.5); NEUTROPHILS % 53.7 % (39.0-77.0); PLATELET COUNT 235 10^3/UL (140-415); RED BLOOD COUNT 5.39 10^6/ul (4.70-6.10); RED CELL DISTRIBUTION WIDTH 14.1 % (11.5-14.5); WHITE BLOOD COUNT 11.3 10^3/ul (4.8-10.8)
[2017-02-24 07:26] LABS: CALCIUM 10.2 mg/dl (8.4-10.2); CREATININE 0.96 mg/dl (0.61-1.24); MAGNESIUM 1.8 mg/dl (1.7-2.5)
[2017-02-24] MEDS: INSULIN ASPART [NOVOLOG] 3 ML PEN SC SCH ×4 (07:55→21:00)
[2017-02-24] MEDS: HEPARIN 5,000 UNIT/0.5 ML VIAL SC SCH ×2 (08:49→21:12)
[2017-02-24] MEDS: MINOXIDIL 2.5 MG TAB PO SCH ×2 (08:51→21:12)
[2017-02-24] MEDS: ASPIRIN 81 MG TAB PO SCH (08:51)
[2017-02-24] MEDS: LISINOPRIL 20 MG TAB PO SCH ×2 (08:52→21:10)
[2017-02-24] MEDS ORDERED: AMLODIPINE 10 MG TAB PO SCH (10:30)
--- NOTE | 2017-02-24 12:36 | CONS ---
Date/Time of Note Date/Time of Note DATE: 02/24/17 TIME: 12:35 Assessment/Plan Assessment/Plan Additional Assessment/Plan 1. Chest pain, assess for acute coronary syndrome - r/o [place], doubt acute ischemia- better now. 2. Hypertensive urgency emergency - BP better - con't to add therapy. Responded to minoxidil./ 3. History of prior percutaneous transluminal coronary angiography and stent placement in 2011. DR. Levi to follow as outpt. 4. History of myocardial infarction in 2011. 5. Dyslipidemia with low HDL. Consultation Date/Type/Reason Admit Date/Time Feb 21, 2017 at 22:06 24 HR Interval Summary Free Text/Dictation NO ectopy on tele. Responded to minoxidil therapy. ROS: No fever, no chills, no nausea, no vomiting, no diarrhea/constipation No recent weight changes No chest pain, no PND, no orthopnea No dizziness, blurred vision No thirst, no heat or cold intolerance Exam/Review of Systems Vital Signs Vitals Vital Signs Date Time Temp Pulse Resp B/P Pulse Ox O2 Delivery O2 Flow Rate FiO2 02/24/17 12:19 72 02/24/17 12:01 134/80 02/24/17 04:29 98.0 18 99 02/22/17 04:00 Room Air Intake and Output 02/23/17 02/23/17 02/24/17 15:00 23:00 07:00 Intake Total 850 ml 1400 ml Balance 850 ml 1400 ml Exam General: WN/WD/NAD, AOx 3 HEENT: Unicetric/atraumatic/EOMI ( follow commands) NECK: JVD elevated, no thyromegaly Lymph: no lymphadenopathy HEART: regular with no S3, II/ systolic murmur at apex LUNGS: Coarse sounds ABD: soft, NT, ND, +BS : Intact Neuro: non focal SKIN: chronic changes EXT: trace edema Results Result Diagram: 02/24/17 0546 02/24/17 0546 Results 24 hrs Laboratory Tests Test 02/23/17 17:35 02/23/17 20:35 02/24/17 05:46 02/24/17 08:45 Bedside Glucose 114 107 115 White Blood Count 11.3 H Red Blood Count 5.39 Hemoglobin 14.7 Hematocrit 48.0 Mean Corpuscular Volume 89.1 Mean Corpuscular Hemoglobin 27.3 L Mean Corpuscular Hemoglobin Concent 30.6 L Red Cell Distribution Width 14.1 Platelet Count 235 Mean Platelet Volume 10.2 Neutrophils % 53.7 Lymphocytes % 36.7 Monocytes % 6.6 Eosinophils % 2.0 Basophils % 0.8 Nucleated Red Blood Cells % 0.0 Neutrophils # 6.1 Lymphocytes # 4.2 H Monocytes # 0.8 Eosinophils # 0.2 Basophils # 0.1 Nucleated Red Blood Cells # 0.0 Sodium Level 140 Potassium Level 4.0 Chloride Level 102 Carbon Dioxide Level 28 Anion Gap 14 # Blood Urea Nitrogen 11 Creatinine 0.96 Glucose Level 111 Calcium Level 10.2 Phosphorus Level 4.0 Magnesium Level 1.8 Medications Medications Current Medications Aspirin (Aspirin) 81 mg DAILY PO Last administered on 02/24/17 08:51; Admin Dose 81 MG; Start 02/22/17 at 09:00 Nitroglycerin (Nitroglycerin (Sl Tab) 0.4 Mg) 1 tab Q5M PRN SL ANGINA; Start 02/22/17 at 01:30 Morphine Sulfate (morphine) 2 mg Q4H PRN IV PAIN; Start 02/22/17 at 01:30 Ondansetron HCl (Zofran Inj) 4 mg Q6H PRN IV NAUSEA AND/OR VOMITING; Start at 01:30 Heparin Sodium (Porcine) (Heparin (5000 Units/0.5 ml)) 5,000 unit BID SC Last administered on 02/24/17 08:49; Admin Dose 5,000 UNIT; Start 02/22/17 at 09: 00 Clonidine (Catapres) 0.1 mg Q6H PRN PO ELEVATED BLOOD PRESSURE Last administered on 02/23/17 00:39; Admin Dose 0.1 MG; Start 02/22/17 at 01:30 Diagnostic Test (Pha) (Accu-Chek) 1 ea 02 XX ; Start 02/23/17 at 02:00 Miscellaneous Information 1 ea NOTE XX ; Start 02/22/17 at 11:00 Glucose (Glutose) 15 gm Q15M PRN PO DECREASED GLUCOSE; Start 02/22/17 at 11:00 Glucose (Glutose) 22.5 gm Q15M PRN PO DECREASED GLUCOSE; Start 02/22/17 at 11: 00 Dextrose (D50w Syringe) 25 ml Q15M PRN IV DECREASED GLUCOSE; Start 02/22/17 at 11:00 Dextrose (D50w Syringe) 50 ml Q15M PRN IV DECREASED GLUCOSE; Start 02/22/17 at 11:00 Glucagon (Glucagen) 1 mg Q15M PRN IM DECREASED GLUCOSE; Start 02/22/17 at 11: 00 Glucose (Glutose) 15 gm Q15M PRN BUCCAL DECREASED GLUCOSE; Start 02/22/17 at 11:00 Atorvastatin Calcium (Lipitor) 40 mg HS PO Last administered on 02/23/17 20: 23; Admin Dose 40 MG; Start 02/22/17 at 21:00 Labetalol HCl (Labetalol) 10 mg Q4 PRN IV SBP>160 Last administered on 14:48; Admin Dose 10 MG; Start 02/22/17 at 15:30 Lisinopril (Zestril) 20 mg BID PO Last administered on 02/24/17 08:52; Admin Dose 20 MG; Start 02/22/17 at 21:00 Hydralazine HCl (Apresoline) 10 mg Q6 PRN IV SBP>170; Start 02/22/17 at 17:30 Carvedilol (Coreg) 12.5 mg BID PO Last administered on 02/24/17 08:52; Admin Dose 12.5 MG; Start 02/23/17 at 21:00 Minoxidil (Loniten) 5 mg BID PO Last administered on 02/24/17 08:51; Admin Dose 5 MG; Start 02/23/17 at 21:00 Amlodipine Besylate (Norvasc) 10 mg DAILY PO Last administered on 02/24/17 11 :34; Admin Dose 10 MG; Start 02/24/17 at 10:30 DAYAMI JONAS MD Feb 24, 2017 12:36
--- NOTE | 2017-02-24 13:22 | PN ---
Date/Time of Note Date/Time of Note DATE: 02/24/17 TIME: 13:19 Assessment/Plan VTE Prophylaxis VTE Prophylaxis Intervention: heparin Lines/Catheters [facility] Saline Lock Urinary Cath still in place: No Assessment/Plan Chief Complaint/Hosp Course Patient is a 41-year-old -[place] male with a past medical history of coronary artery disease with stent placement 2011 and uncontrolled hypertension who presents to the ED complaining of chest pain for 1 day on the right side. Patient admitted for chest pain and hypertensive urgency Assessment and plan Chest pain Hypertensive urgency Medical noncompliance Coronary artery disease -Cardiology consulted, recommendations appreciated -Patient stated that he ran out of insurance which is why he stopped his blood pressure medication -Restart beta-win, ALMA inhibitor. cardiology added minoxidil, BP labile, added amlodipine -Cholesterol elevated, LDL not at goal, restart atorvastatin -Patient's hemoglobin A1c is elevated, diabetic sr technical sales consultant has seen patient, will follow, likely DC with metformin vs await secondary glucose/DM test such as fasting sugar >125 or random glucose over 200. -troponin neg. -Echocardiogram -Counseled patient on affordability of generic medications DISPO: DC patient once BP is under control. asymptomatic for now. Problems: Subjective 24 Hr Interval Summary Free Text/Dictation no acute issues Exam/Review of Systems Vital Signs Vitals Vital Signs Date Time Temp Pulse Resp B/P Pulse Ox O2 Delivery O2 Flow Rate FiO2 02/24/17 12:55 98.0 76 18 118/66 99 02/22/17 04:00 Room Air Intake and Output 02/23/17 02/23/17 02/24/17 15:00 23:00 07:00 Intake Total 850 ml 1400 ml Balance 850 ml 1400 ml Exam Physical exam General: Patient is laying in bed and answers questions appropriately Mentation: Patient is alert and oriented 4, Head: Normocephalic atraumatic Eyes: EOMI, pupils reactive to light Neck: Supple, nontender, midline Respiratory: Clear to auscultation bilaterally Cardiovascular: regular rate, no obvious murmurs Gastrointestinal: non-tender to palpation, bowel sounds heard. Neurological: Moves all extremities spontaneously Skin: No new skin lesions Results Result Diagram: 02/24/17 0546 02/24/17 0546 Results 24 hrs Laboratory Tests Test 02/23/17 17:35 02/23/17 20:35 02/24/17 05:46 02/24/17 08:45 Bedside Glucose 114 107 115 White Blood Count 11.3 H Red Blood Count 5.39 Hemoglobin 14.7 Hematocrit 48.0 Mean Corpuscular Volume 89.1 Mean Corpuscular Hemoglobin 27.3 L Mean Corpuscular Hemoglobin Concent 30.6 L Red Cell Distribution Width 14.1 Platelet Count 235 Mean Platelet Volume 10.2 Neutrophils % 53.7 Lymphocytes % 36.7 Monocytes % 6.6 Eosinophils % 2.0 Basophils % 0.8 Nucleated Red Blood Cells % 0.0 Neutrophils # 6.1 Lymphocytes # 4.2 H Monocytes # 0.8 Eosinophils # 0.2 Basophils # 0.1 Nucleated Red Blood Cells # 0.0 Sodium Level 140 Potassium Level 4.0 Chloride Level 102 Carbon Dioxide Level 28 Anion Gap 14 # Blood Urea Nitrogen 11 Creatinine 0.96 Glucose Level 111 Calcium Level 10.2 Phosphorus Level 4.0 Magnesium Level 1.8 Test 02/24/17 12:25 Bedside Glucose 117 Medications Medications Current Medications Aspirin (Aspirin) 81 mg DAILY PO Last administered on 02/24/17 08:51; Admin Dose 81 MG; Start 02/22/17 at 09:00 Nitroglycerin (Nitroglycerin (Sl Tab) 0.4 Mg) 1 tab Q5M PRN SL ANGINA; Start 02/22/17 at 01:30 Morphine Sulfate (morphine) 2 mg Q4H PRN IV PAIN; Start 02/22/17 at 01:30 Ondansetron HCl (Zofran Inj) 4 mg Q6H PRN IV NAUSEA AND/OR VOMITING; Start at 01:30 Heparin Sodium (Porcine) (Heparin (5000 Units/0.5 ml)) 5,000 unit BID SC Last administered on 02/24/17 08:49; Admin Dose 5,000 UNIT; Start 02/22/17 at 09: 00 Clonidine (Catapres) 0.1 mg Q6H PRN PO ELEVATED BLOOD PRESSURE Last administered on 02/23/17 00:39; Admin Dose 0.1 MG; Start 02/22/17 at 01:30 Diagnostic Test (Pha) (Accu-Chek) 1 ea 02 XX ; Start 02/23/17 at 02:00 Miscellaneous Information 1 ea NOTE XX ; Start 02/22/17 at 11:00 Glucose (Glutose) 15 gm Q15M PRN PO DECREASED GLUCOSE; Start 02/22/17 at 11:00 Glucose (Glutose) 22.5 gm Q15M PRN PO DECREASED GLUCOSE; Start 02/22/17 at 11: 00 Dextrose (D50w Syringe) 25 ml Q15M PRN IV DECREASED GLUCOSE; Start 02/22/17 at 11:00 Dextrose (D50w Syringe) 50 ml Q15M PRN IV DECREASED GLUCOSE; Start 02/22/17 at 11:00 Glucagon (Glucagen) 1 mg Q15M PRN IM DECREASED GLUCOSE; Start 02/22/17 at 11: 00 Glucose (Glutose) 15 gm Q15M PRN BUCCAL DECREASED GLUCOSE; Start 02/22/17 at 11:00 Atorvastatin Calcium (Lipitor) 40 mg HS PO Last administered on 02/23/17 20: 23; Admin Dose 40 MG; Start 02/22/17 at 21:00 Labetalol HCl (Labetalol) 10 mg Q4 PRN IV SBP>160 Last administered on 14:48; Admin Dose 10 MG; Start 02/22/17 at 15:30 Lisinopril (Zestril) 20 mg BID PO Last administered on 02/24/17 08:52; Admin Dose 20 MG; Start 02/22/17 at 21:00 Hydralazine HCl (Apresoline) 10 mg Q6 PRN IV SBP>170; Start 02/22/17 at 17:30 Carvedilol (Coreg) 12.5 mg BID PO Last administered on 02/24/17 08:52; Admin Dose 12.5 MG; Start 02/23/17 at 21:00 Minoxidil (Loniten) 5 mg BID PO Last administered on 02/24/17 08:51; Admin Dose 5 MG; Start 02/23/17 at 21:00 Amlodipine Besylate (Norvasc) 10 mg DAILY PO Last administered on 02/24/17 11 :34; Admin Dose 10 MG; Start 02/24/17 at 10:30 GIANCARLO BELL Feb 24, 2017 13:22
[2017-02-24] MEDS: ATORVASTATIN 40 MG TAB PO SCH (21:10)
[2017-02-25] VITALS (12 sets, daily range): BP systolic 123–159; BP diastolic 72–89; PULSE 70–83; RESP 18–20
[2017-02-25] MEDS: ACCU-CHEK XX SCH (02:00)
[2017-02-25] MEDS: ASPIRIN 81 MG TAB PO SCH (08:07)
[2017-02-25] MEDS: LISINOPRIL 20 MG TAB PO SCH ×2 (08:08→20:40)
[2017-02-25] MEDS: MINOXIDIL 2.5 MG TAB PO SCH ×2 (08:08→20:40)
[2017-02-25] MEDS: INSULIN ASPART [NOVOLOG] 3 ML PEN SC SCH ×4 (08:12→20:46)
[2017-02-25] MEDS: HEPARIN 5,000 UNIT/0.5 ML VIAL SC SCH ×2 (08:13→20:49)
[2017-02-25] MEDS: AMLODIPINE 5 MG TAB PO SCH (09:27)
--- NOTE | 2017-02-25 10:29 | PN ---
Date/Time of Note Date/Time of Note DATE: 02/25/17 TIME: 10:29 Assessment/Plan VTE Prophylaxis VTE Prophylaxis Intervention: heparin Lines/Catheters IV C[facility]ter Type (from [facility]): Saline Lock Urinary Cath still in place: No Assessment/Plan Assessment/Plan 1. Chest pain - Cardiology on board and ACS ruled out. negative trop x 3/Nl EF by echo. No further CP - Will need to follow up with Cardiology as outpatient for stress testing 2. Hypertensive urgency - Slowly improving and remains stable today - Will need to make sure patient able to fill prescriptions and SW consulted for assistance with insurance issue - continue current medication regime 3. HLD - on statin 4. Diabetes Mellitus - Will need life style modification and repeat A1c in 3 months as outpatient - A1c 7.5 5. Disposition - If BP remains stable, will d/c in next 24 hours Subjective 24 Hr Interval Summary Free Text/Dictation Patient doing well and denies any new complaints. No acute overnight events. States has been having issues with insurance and unable to afford BP medications which led to his hospital admission. Exam/Review of Systems Vital Signs Vitals Vital Signs Date Time Temp Pulse Resp B/P Pulse Ox O2 Delivery O2 Flow Rate FiO2 02/25/17 08:31 83 02/25/17 07:15 98.6 19 153/89 95 02/22/17 04:00 Room Air Intake and Output 02/24/17 02/24/17 02/25/17 15:00 23:00 07:00 Intake Total 1020 ml 180 ml Output Total 1300 ml Balance -280 ml 180 ml Exam General: Patient is laying in bed and answers questions appropriately Head: Normocephalic atraumatic Eyes: EOMI, pupils reactive to light Neck: Supple, nontender, midline Respiratory: Clear to auscultation bilaterally Cardiovascular: regular rate, no obvious murmurs Gastrointestinal: non-tender to palpation, bowel sounds heard. Neurological: Moves all extremities spontaneously Results Result Diagram: 02/24/17 0546 02/24/17 0546 Results 24 hrs Laboratory Tests Test 02/24/17 12:25 02/24/17 17:20 02/24/17 21:02 02/25/17 08:04 Bedside Glucose 117 109 143 144 Medications Medications Current Medications Aspirin (Aspirin) 81 mg DAILY PO Last administered on 02/25/17t 08:07; Admin Dose 81 MG; Start 02/22/17 at 09:00 Nitroglycerin (Nitroglycerin (Sl Tab) 0.4 Mg) 1 tab Q5M PRN SL ANGINA; Start 02/22/17 at 01:30 Morphine Sulfate (morphine) 2 mg Q4H PRN IV PAIN; Start 02/22/17 at 01:30 Ondansetron HCl (Zofran Inj) 4 mg Q6H PRN IV NAUSEA AND/OR VOMITING; Start at 01:30 Heparin Sodium (Porcine) (Heparin (5000 Units/0.5 ml)) 5,000 unit BID SC Last administered on 02/25/17 08:13; Admin Dose 5,000 UNIT; Start 02/22/17 at 09: 00 Clonidine (Catapres) 0.1 mg Q6H PRN PO ELEVATED BLOOD PRESSURE Last administered on 02/23/17 00:39; Admin Dose 0.1 MG; Start 02/22/17 at 01:30 Diagnostic Test (Pha) (Accu-Chek) 1 ea 02 XX ; Start 02/23/17 at 02:00 Miscellaneous Information 1 ea NOTE XX ; Start 02/22/17 at 11:00 Glucose (Glutose) 15 gm Q15M PRN PO DECREASED GLUCOSE; Start 02/22/17 at 11:00 Glucose (Glutose) 22.5 gm Q15M PRN PO DECREASED GLUCOSE; Start 02/22/17 at 11: 00 Dextrose (D50w Syringe) 25 ml Q15M PRN IV DECREASED GLUCOSE; Start 02/22/17 at 11:00 Dextrose (D50w Syringe) 50 ml Q15M PRN IV DECREASED GLUCOSE; Start 02/22/17 at 11:00 Glucagon (Glucagen) 1 mg Q15M PRN IM DECREASED GLUCOSE; Start 02/22/17 at 11: 00 Glucose (Glutose) 15 gm Q15M PRN BUCCAL DECREASED GLUCOSE; Start 02/22/17 at 11:00 Atorvastatin Calcium (Lipitor) 40 mg HS PO Last administered on 02/24/17 21: 10; Admin Dose 40 MG; Start 02/22/17 at 21:00 Labetalol HCl (Labetalol) 10 mg Q4 PRN IV SBP>160 Last administered on 14:48; Admin Dose 10 MG; Start 02/22/17 at 15:30 Lisinopril (Zestril) 20 mg BID PO Last administered on 02/25/17 08:08; Admin Dose 20 MG; Start 02/22/17 at 21:00 Hydralazine HCl (Apresoline) 10 mg Q6 PRN IV SBP>170; Start 02/22/17 at 17:30 Carvedilol (Coreg) 12.5 mg BID PO Last administered on 02/25/17 08:08; Admin Dose 12.5 MG; Start 02/23/17 at 21:00 Minoxidil (Loniten) 5 mg BID PO Last administered on 02/25/17 08:08; Admin Dose 5 MG; Start 02/23/17 at 21:00 Amlodipine Besylate (Norvasc) 5 mg DAILY PO Last administered on 02/25/17 09: 27; Admin Dose 5 MG; Start 02/25/17 at 09:00 SINCERE ENGLAND MD Feb 25, 2017 10:29
--- NOTE | 2017-02-25 10:31 | CONS ---
Date/Time of Note Date/Time of Note DATE: 02/25/17 TIME: 10:26 Assessment/Plan Assessment/Plan Chief Complaint/Hosp Course IMPRESSION: 1. Chest pain, assess for acute coronary syndrome.-negative trop x 3/Nl EF by echo. No further CP 2. Hypertensive urgency emergency-slowly improving on oral anti-hypertensives 3. History of prior percutaneous transluminal coronary angiography and stent placement in 2011. 4. History of myocardial infarction in 2011. 5. Dyslipidemia with low HDL. Recc: -Tele -serial ecg's -Continue asa/statin -Continue minoxdil/norvasc/zestril/coreg -Follow BP closely -D/C planning if BP remains stable with outpatient f/u and outpatient stress testing Problems: Consultation Date/Type/Reason Admit Date/Time Feb 21, 2017 at 22:06 Initial Consult Date 02/21/2017 Type of Consultation: cardiology Reason for Consultation chest pain/HTN Referring Provider: KIRSTIE TONY Exam/Review of Systems Vital Signs Vitals Vital Signs Date Time Temp Pulse Resp B/P Pulse Ox O2 Delivery O2 Flow Rate FiO2 02/25/17 08:31 83 02/25/17 07:15 98.6 19 153/89 95 02/22/17 04:00 Room Air Intake and Output 02/24/17 02/24/17 02/25/17 15:00 23:00 07:00 Intake Total 1020 ml 180 ml Output Total 1300 ml Balance -280 ml 180 ml Exam Review of Systems: CONSTITUTIONAL: No fevers, chills. PULMONARY: No sob CARDIOVASCULAR: No chest pain/palpitations GASTROINTESTINAL: No nausea/vomiting. GENITOURINARY: No hematuria/dysuria. MUSCULOSKELETAL: No myagias/arthalgias. PSYCHIATRIC: The patient denies depression. NEUROLOGIC: No weakness Constitutional: alert, oriented Psych: no complaints Head: normocephalic ENMT: mucosa pink and moist Neck: non-tender, supple Respiratory: diminished breath sounds Cardiovascular: regular rate and rhythm Gastrointestinal: non-tender Musculoskeletal: muscle tone (normal) Extremities: edema (none) Neurological: other (No focal deficits) Results Result Diagram: 02/24/17 0546 02/24/17 0546 Results 24 hrs Laboratory Tests Test 02/24/17 12:25 02/24/17 17:20 02/24/17 21:02 02/25/17 08:04 Bedside Glucose 117 109 143 144 Medications Medications Current Medications Aspirin (Aspirin) 81 mg DAILY PO Last administered on 02/25/17 08:07; Admin Dose 81 MG; Start 02/22/17 at 09:00 Nitroglycerin (Nitroglycerin (Sl Tab) 0.4 Mg) 1 tab Q5M PRN SL ANGINA; Start 02/22/17 at 01:30 Morphine Sulfate (morphine) 2 mg Q4H PRN IV PAIN; Start 02/22/17 at 01:30 Ondansetron HCl (Zofran Inj) 4 mg Q6H PRN IV NAUSEA AND/OR VOMITING; Start at 01:30 Heparin Sodium (Porcine) (Heparin (5000 Units/0.5 ml)) 5,000 unit BID SC Last administered on 02/25/17 08:13; Admin Dose 5,000 UNIT; Start 02/22/17 at 09: 00 Clonidine (Catapres) 0.1 mg Q6H PRN PO ELEVATED BLOOD PRESSURE Last administered on 02/23/17 00:39; Admin Dose 0.1 MG; Start 02/22/17 at 01:30 Diagnostic Test (Pha) (Accu-Chek) 1 ea 02 XX ; Start 02/23/17 at 02:00 Miscellaneous Information 1 ea NOTE XX ; Start 02/22/17 at 11:00 Glucose (Glutose) 15 gm Q15M PRN PO DECREASED GLUCOSE; Start 02/22/17 at 11:00 Glucose (Glutose) 22.5 gm Q15M PRN PO DECREASED GLUCOSE; Start 02/22/17 at 11: 00 Dextrose (D50w Syringe) 25 ml Q15M PRN IV DECREASED GLUCOSE; Start 02/22/17 at 11:00 Dextrose (D50w Syringe) 50 ml Q15M PRN IV DECREASED GLUCOSE; Start 02/22/17 at 11:00 Glucagon (Glucagen) 1 mg Q15M PRN IM DECREASED GLUCOSE; Start 02/22/17 at 11: 00 Glucose (Glutose) 15 gm Q15M PRN BUCCAL DECREASED GLUCOSE; Start 02/22/17 at 11:00 Atorvastatin Calcium (Lipitor) 40 mg HS PO Last administered on 02/24/17 21: 10; Admin Dose 40 MG; Start 02/22/17 at 21:00 Labetalol HCl (Labetalol) 10 mg Q4 PRN IV SBP>160 Last administered on 14:48; Admin Dose 10 MG; Start 02/22/17 at 15:30 Lisinopril (Zestril) 20 mg BID PO Last administered on 02/25/17 08:08; Admin Dose 20 MG; Start 02/22/17 at 21:00 Hydralazine HCl (Apresoline) 10 mg Q6 PRN IV SBP>170; Start 02/22/17 at 17:30 Carvedilol (Coreg) 12.5 mg BID PO Last administered on 02/25/17 08:08; Admin Dose 12.5 MG; Start 02/23/17 at 21:00 Minoxidil (Loniten) 5 mg BID PO Last administered on 02/25/17 08:08; Admin Dose 5 MG; Start 02/23/17 at 21:00 Amlodipine Besylate (Norvasc) 5 mg DAILY PO Last administered on 02/25/17 09: 27; Admin Dose 5 MG; Start 02/25/17 at 09:00 ANGEL VAZQUEZ Feb 25, 2017 10:31
[2017-02-25] MEDS: ATORVASTATIN 40 MG TAB PO SCH (20:40)
[2017-02-26] VITALS (8 sets, daily range): BP systolic 128–150; BP diastolic 69–90; PULSE 72–81; RESP 18–19
[2017-02-26] MEDS: ACCU-CHEK XX SCH (01:03)
[2017-02-26 06:40] LABS: BASOPHIL # 0.1 10^3/ul (0.0-0.1); BASOPHILS % 0.6 % (0.0-2.0); EOSINOPHILS # 0.2 10^3/ul (0.0-0.5); EOSINOPHILS % 1.7 % (0.0-7.0); HEMATOCRIT 44.4 % (42.0-52.0); HEMOGLOBIN 14.1 g/dl (14.0-18.0); LYMPHOCYTES # 2.8 10^3/ul (0.8-2.9); LYMPHOCYTES % 27.9 % (15.0-51.0); MEAN CORPUSCULAR HEMOGLOBIN 27.8 pg (29.0-33.0); MEAN CORPUSCULAR HGB CONC 31.8 g/dl (32.0-37.0); MEAN CORPUSCULAR VOLUME 87.6 fl (82.0-101.0); MONOCYTE # 0.8 10^3/ul (0.3-0.9); MONOCYTES % 8.1 % (0.0-11.0); NEUTROPHIL # 6.1 10^3/ul (1.6-7.5); NEUTROPHILS % 61.6 % (39.0-77.0); PLATELET COUNT 230 10^3/UL (140-415); RED BLOOD COUNT 5.07 10^6/ul (4.70-6.10); RED CELL DISTRIBUTION WIDTH 13.2 % (11.5-14.5); WHITE BLOOD COUNT 9.9 10^3/ul (4.8-10.8)
[2017-02-26 07:06] LABS: ALBUMIN 3.9 g/dl (3.3-4.9); CALCIUM 9.9 mg/dl (8.4-10.2); MAGNESIUM 1.9 mg/dl (1.7-2.5); PHOSPHORUS 3.9 mg/dl (2.5-4.9); POTASSIUM 4.2 mmol/L (3.5-5.1)
[2017-02-26] MEDS: INSULIN ASPART [NOVOLOG] 3 ML PEN SC SCH ×2 (07:55→11:32)
[2017-02-26] MEDS: ASPIRIN 81 MG TAB PO SCH (07:56)
[2017-02-26] MEDS: AMLODIPINE 5 MG TAB PO SCH (07:57)
[2017-02-26] MEDS: MINOXIDIL 2.5 MG TAB PO SCH (07:58)
[2017-02-26] MEDS: LISINOPRIL 20 MG TAB PO SCH (07:58)
[2017-02-26] MEDS: HEPARIN 5,000 UNIT/0.5 ML VIAL SC SCH (08:04)
--- NOTE | 2017-02-26 09:23 | CONS ---
Date/Time of Note Date/Time of Note DATE: 02/26/17 TIME: 09:22 Assessment/Plan Assessment/Plan Additional Assessment/Plan 1. Chest pain, assess for acute coronary syndrome - r/o ME, doubt acute ischemia- better now. NO intervention planned now. 2. Hypertensive urgency emergency - BP better - con't to add therapy. Responded to minoxidil. IMPROVED BP. 3. History of prior percutaneous transluminal coronary angiography and stent placement in 2011. DR. Levi to follow as outpt. 4. History of myocardial infarction in 2011. 5. Dyslipidemia with low HDL. Consultation Date/Type/Reason Admit Date/Time Feb 21, 2017 at 22:06 Type of Consultation: cardiology Referring Provider: KIRSTIE TONY 24 HR Interval Summary Free Text/Dictation NO acute change - better overall - will Rx clinically. ROS: No fever, no chills, no nausea, no vomiting, no diarrhea/constipation No recent weight changes No chest pain, no PND, no orthopnea No dizziness, blurred vision No thirst, no heat or cold intolerance Exam/Review of Systems Vital Signs Vitals Vital Signs Date Time Temp Pulse Resp B/P Pulse Ox O2 Delivery O2 Flow Rate FiO2 02/26/17 08:14 75 02/26/17 07:18 98.4 19 141/90 97 Intake and Output 02/25/17 02/25/17 02/26/17 15:00 23:00 07:00 Intake Total 1380 ml 240 ml Balance 1380 ml 240 ml Exam General: WN/WD/NAD, AOx 3 HEENT: Unicetric/atraumatic/EOMI (follow commands) NECK: JVD elevated, no thyromegaly Lymph: no lymphadenopathy HEART: regular with no S3, II/ systolic murmur at apex LUNGS: Coarse sounds ABD: soft, NT, ND, +BS : Intact Neuro: non focal SKIN: chronic changes EXT: trace edema Results Result Diagram: 02/26/17 0600 02/26/17 0600 Results 24 hrs Laboratory Tests Test 02/25/17 11:59 02/25/17 17:37 02/25/17 20:46 02/26/17 06:00 Bedside Glucose 137 103 149 White Blood Count 9.9 Red Blood Count 5.07 Hemoglobin 14.1 Hematocrit 44.4 Mean Corpuscular Volume 87.6 Mean Corpuscular Hemoglobin 27.8 L Mean Corpuscular Hemoglobin Concent 31.8 L Red Cell Distribution Width 13.2 Platelet Count 230 Mean Platelet Volume 10.0 Neutrophils % 61.6 Lymphocytes % 27.9 Monocytes % 8.1 Eosinophils % 1.7 Basophils % 0.6 Nucleated Red Blood Cells % 0.0 Neutrophils # 6.1 Lymphocytes # 2.8 Monocytes # 0.8 Eosinophils # 0.2 Basophils # 0.1 Nucleated Red Blood Cells # 0.0 Sodium Level 140 Potassium Level 4.2 Chloride Level 101 Carbon Dioxide Level 31 Anion Gap 12 Blood Urea Nitrogen 12 Creatinine 1.00 Glucose Level 117 Calcium Level 9.9 Phosphorus Level 3.9 Magnesium Level 1.9 Albumin 3.9 Test 02/26/17 07:55 Bedside Glucose 115 Medications Medications Current Medications Aspirin (Aspirin) 81 mg DAILY PO Last administered on 02/26/17 07:56; Admin Dose 81 MG; Start 02/22/17 at 09:00 Nitroglycerin (Nitroglycerin (Sl Tab) 0.4 Mg) 1 tab Q5M PRN SL ANGINA; Start 02/22/17 at 01:30 Morphine Sulfate (morphine) 2 mg Q4H PRN IV PAIN; Start 02/22/17 at 01:30 Ondansetron HCl (Zofran Inj) 4 mg Q6H PRN IV NAUSEA AND/OR VOMITING; Start at 01:30 Heparin Sodium (Porcine) (Heparin (5000 Units/0.5 ml)) 5,000 unit BID SC Last administered on 02/26/17 08:04; Admin Dose 5,000 UNIT; Start 02/22/17 at 09: 00 Clonidine (Catapres) 0.1 mg Q6H PRN PO ELEVATED BLOOD PRESSURE Last administered on 02/23/17 00:39; Admin Dose 0.1 MG; Start 02/22/17 at 01:30 Diagnostic Test (Pha) (Accu-Chek) 1 ea 02 XX ; Start 02/23/17 at 02:00 Miscellaneous Information 1 ea NOTE XX ; Start 02/22/17 at 11:00 Glucose (Glutose) 15 gm Q15M PRN PO DECREASED GLUCOSE; Start 02/22/17 at 11:00 Glucose (Glutose) 22.5 gm Q15M PRN PO DECREASED GLUCOSE; Start 02/22/17 at 11: 00 Dextrose (D50w Syringe) 25 ml Q15M PRN IV DECREASED GLUCOSE; Start 02/22/17 at 11:00 Dextrose (D50w Syringe) 50 ml Q15M PRN IV DECREASED GLUCOSE; Start 02/22/17 at 11:00 Glucagon (Glucagen) 1 mg Q15M PRN IM DECREASED GLUCOSE; Start 02/22/17 at 11: 00 Glucose (Glutose) 15 gm Q15M PRN BUCCAL DECREASED GLUCOSE; Start 02/22/17 at 11:00 Atorvastatin Calcium (Lipitor) 40 mg HS PO Last administered on 02/25/17 20: 40; Admin Dose 40 MG; Start 02/22/17 at 21:00 Labetalol HCl (Labetalol) 10 mg Q4 PRN IV SBP>160 Last administered on 14:48; Admin Dose 10 MG; Start 02/22/17 at 15:30 Lisinopril (Zestril) 20 mg BID PO Last administered on 02/26/17 07:58; Admin Dose 20 MG; Start 02/22/17 at 21:00 Hydralazine HCl (Apresoline) 10 mg Q6 PRN IV SBP>170; Start 02/22/17 at 17:30 Carvedilol (Coreg) 12.5 mg BID PO Last administered on 02/26/17 07:57; Admin Dose 12.5 MG; Start 02/23/17 at 21:00 Minoxidil (Loniten) 5 mg BID PO Last administered on 02/26/17 07:58; Admin Dose 5 MG; Start 02/23/17 at 21:00 Amlodipine Besylate (Norvasc) 5 mg DAILY PO Last administered on 02/26/17 07: 57; Admin Dose 5 MG; Start 02/25/17 at 09:00 DAYAMI JONAS MD Feb 26, 2017 09:23
--- NOTE | 2017-02-26 11:25 | PN ---
Date/Time of Note Date/Time of Note DATE: 02/26/17 TIME: 11:25 Assessment/Plan VTE Prophylaxis VTE Prophylaxis Intervention: heparin Lines/Catheters IV [facility]from [facility] Urinary Cath still in place: No Assessment/Plan Assessment/Plan 1. Chest pain- resolved - Cardiology on board and ACS ruled out. negative trop x 3/Nl EF by echo. No further CP - Will need to follow up with Cardiology as outpatient for stress testing 2. Hypertensive urgency- improved - Has improved on current medications and will discharge on same - Will need to follow up with Cardiology as outpatient and advised to monitor BP at home 3. HLD - on statin 4. Diabetes Mellitus - Will need life style modification and repeat A1c in 3 months as outpatient - A1c 7.5 5. Disposition - Medically stable for discharge home Subjective 24 Hr Interval Summary Free Text/Dictation Patient doing well and denies any new complaints. No acute overnight events. Exam/Review of Systems Vital Signs Vitals Vital Signs Date Time Temp Pulse Resp B/P Pulse Ox O2 Delivery O2 Flow Rate FiO2 02/26/17 08:14 75 02/26/17 07:18 98.4 19 141/90 97 Intake and Output 02/25/17 02/25/17 02/26/17 15:00 23:00 07:00 Intake Total 1380 ml 240 ml Balance 1380 ml 240 ml Exam General: Patient is laying in bed and answers questions appropriately Head: Normocephalic atraumatic Eyes: EOMI, pupils reactive to light Neck: Supple, nontender, midline Respiratory: Clear to auscultation bilaterally Cardiovascular: regular rate, no obvious murmurs Gastrointestinal: non-tender to palpation, bowel sounds heard. Neurological: Moves all extremities spontaneously Results Result Diagram: 02/26/17 0602/26/17 06 Results 24 hrs Laboratory Tests Test 02/25/17 11:59 02/25/17 17:37 02/25/17 20:46 02/26/17 06:00 Bedside Glucose 137 103 149 White Blood Count 9.9 Red Blood Count 5.07 Hemoglobin 14.1 Hematocrit 44.4 Mean Corpuscular Volume 87.6 Mean Corpuscular Hemoglobin 27.8 L Mean Corpuscular Hemoglobin Concent 31.8 L Red Cell Distribution Width 13.2 Platelet Count 230 Mean Platelet Volume 10.0 Neutrophils % 61.6 Lymphocytes % 27.9 Monocytes % 8.1 Eosinophils % 1.7 Basophils % 0.6 Nucleated Red Blood Cells % 0.0 Neutrophils # 6.1 Lymphocytes # 2.8 Monocytes # 0.8 Eosinophils # 0.2 Basophils # 0.1 Nucleated Red Blood Cells # 0.0 Sodium Level 140 Potassium Level 4.2 Chloride Level 101 Carbon Dioxide Level 31 Anion Gap 12 Blood Urea Nitrogen 12 Creatinine 1.00 Glucose Level 117 Calcium Level 9.9 Phosphorus Level 3.9 Magnesium Level 1.9 Albumin 3.9 Test 02/26/17 07:55 Bedside Glucose 115 Medications Medications Current Medications Aspirin (Aspirin) 81 mg DAILY PO Last administered on 02/26/17 07:56; Admin Dose 81 MG; Start 02/22/17 at 09:00 Nitroglycerin (Nitroglycerin (Sl Tab) 0.4 Mg) 1 tab Q5M PRN SL ANGINA; Start 02/22/17 at 01:30 Morphine Sulfate (morphine) 2 mg Q4H PRN IV PAIN; Start 02/22/17 at 01:30 Ondansetron HCl (Zofran Inj) 4 mg Q6H PRN IV NAUSEA AND/OR VOMITING; Start at 01:30 Heparin Sodium (Porcine) (Heparin (5000 Units/0.5 ml)) 5,000 unit BID SC Last administered on 02/26/17 08:04; Admin Dose 5,000 UNIT; Start 02/22/17 at 09: 00 Clonidine (Catapres) 0.1 mg Q6H PRN PO ELEVATED BLOOD PRESSURE Last administered on 02/23/17 00:39; Admin Dose 0.1 MG; Start 02/22/17 at 01:30 Diagnostic Test (Pha) (Accu-Chek) 1 ea 02 XX ; Start 02/23/17 at 02:00 Miscellaneous Information 1 ea NOTE XX ; Start 02/22/17 at 11:00 Glucose (Glutose) 15 gm Q15M PRN PO DECREASED GLUCOSE; Start 02/22/17 at 11:00 Glucose (Glutose) 22.5 gm Q15M PRN PO DECREASED GLUCOSE; Start 02/22/17 at 11: 00 Dextrose (D50w Syringe) 25 ml Q15M PRN IV DECREASED GLUCOSE; Start 02/22/17 at 11:00 Dextrose (D50w Syringe) 50 ml Q15M PRN IV DECREASED GLUCOSE; Start 02/22/17 at 11:00 Glucagon (Glucagen) 1 mg Q15M PRN IM DECREASED GLUCOSE; Start 02/22/17 at 11: 00 Glucose (Glutose) 15 gm Q15M PRN BUCCAL DECREASED GLUCOSE; Start 02/22/17 at 11:00 Atorvastatin Calcium (Lipitor) 40 mg HS PO Last administered on 02/25/17 20: 40; Admin Dose 40 MG; Start 02/22/17 at 21:00 Labetalol HCl (Labetalol) 10 mg Q4 PRN IV SBP>160 Last administered on 14:48; Admin Dose 10 MG; Start 02/22/17 at 15:30 Lisinopril (Zestril) 20 mg BID PO Last administered on 02/26/17 07:58; Admin Dose 20 MG; Start 02/22/17 at 21:00 Hydralazine HCl (Apresoline) 10 mg Q6 PRN IV SBP>170; Start 02/22/17 at 17:30 Carvedilol (Coreg) 12.5 mg BID PO Last administered on 02/26/17 07:57; Admin Dose 12.5 MG; Start 02/23/17 at 21:00 Minoxidil (Loniten) 5 mg BID PO Last administered on 02/26/17 07:58; Admin Dose 5 MG; Start 02/23/17 at 21:00 Amlodipine Besylate (Norvasc) 5 mg DAILY PO Last administered on 02/26/17 07: 57; Admin Dose 5 MG; Start 02/25/17 at 09:00 SINCERE ENGLAND MD Feb 26, 2017 11:25
[2017-02-26] MEDS ORDERED: CARV12.579 PO (11:28)
[2017-02-26] MEDS ORDERED: LISI20TA11 PO (11:28)
[2017-02-26] MEDS ORDERED: MINO2.5T16 PO (11:28)
[2017-02-26] MEDS ORDERED: AMLO-145 PO (11:28)
[2017-02-26] MEDS ORDERED: ATOR40TA68 PO (11:28)
--- NOTE | 2017-02-26 11:34 | PDOCDIS ---
Discharge Instructions DIAGNOSIS Discharge Diagnosis 1. Chest pain- resolved and ACS ruled out 2. Hypertensive urgency 3. Hyperlipidemia 4. Diabetes Mellitus- A1c 7.5 CONDITION Patient Condition: Good HOME CARE INSTRUCTIONS: Diet Instructions: Low Fat /CholesterolSpecial Diet: Cardiac ACTIVITY: Activity Restrictions: No Restrictions FOLLOW UP/APPOINTMENTS Follow-up Plan 1. Take all medications as prescribed 2. Follow up with Dr. Levi in 2-4 weeks 3. Monitor your blood pressure at home. If the top number is consistently greater than 160 or less than 90, call your linux security administrator or your Primary care physician 4. Follow up with your primary care physician in 1 week 5. Monitor your blood pressure at home especially if experiencing dizziness, lightheadedness, chest pain, palpitations, or shortness of breath. 6. You will need to increase your physical activity and follow a low carb, low sugar diet and stay away from fried and greasy foods. You are considered Diabetic and will need to do life style changes mentioned with repeat A1c in 3 months prior to being started on medications 7. If your symptoms return, return to the ED REFERRALS Other Referrals Reynaldo Levi MD Specialty: Cardiology Office Address [address] [place] [address] Office SCHOOL/WORK RELEASE May return to School/Work on: Feb 27, 2017 May return to School/Work with: No Restrictions SINCERE ENGLAND MD Feb 26, 2017 11:34
--- NOTE | 2017-02-26 11:37 | DS ---
Date/Time of Note Date/Time of Note DATE: 02/26/17 TIME: 11:37 Discharge Summary Admission/Discharge Info Admit Date/Time Feb 21, 2017 at 22:06 Discharge Date/Time Discharge Diagnosis 1. Chest pain- resolved and ACS ruled out 2. Hypertensive urgency 3. Hyperlipidemia 4. Diabetes Mellitus- A1c 7.5 Patient Condition: Good Consults Cardiology- Dr. Levi Procedures ECHO 1. Lower limits of normal systolic function. Normal left ventricular cavity size. Ejection fraction is visually estimated at 50-55 %. Abnormal Diastolic Function. 2. There is mild enlargement of left atrium. 3. Normal appearance and function of the mitral valve with trace physiologic regurgitation. 4. Normal appearance of the tricuspid valve. Estimated peak PA systolic pressure 27 mmHg. There is mild tricuspid regurgitation. Hx of Present Illness This is a 41-year-old male with a history of CAD with stent 2012 and hypertension who presented to the emergency department complaining of chest pain 1 day. Pain is slightly right-sided with no radiation. Reported associated lightheadedness and diaphoresis. When he presented to the ER his blood pressure was 241/109. He has not been taking his antihypertensive for over a year. He has however been taking low- dose aspirin daily. EKG shows no ST-T wave abnormalities and first troponin is negative. Chest x-ray was no active cardiopulmonary disease. Hospital Course Patient was admitted for chest pain and Cardiology was consulted. ACS workup was performed due to history of CAD with stent placement in 2011. Patient had negative serial troponins and normal EF by ECHO. His chest pain resolved during hospitalization. Patient was also found to have elevated blood pressure of 241/109. He was started on multiple hypertensive medications with multiple adjustments made to maintain SBP <140. Patient was tolerating medication well and issue in the past was that patient was not able to afford his medications due to insurance issues. Case Management was consulted for assistance and patient was doing well on regime. Per Cardiology, patient would need to follow up for outpatient stress testing and monitoring of BP. Patient was also instructed about life style modification especially with A1c findings of 7.5. Plan was discussed to improve exercise regime and diet and if A1c in 3 months did not improve, would need to be started on PO medications. Patient also instructed to check bp at home and return to ED if persistently high or chest pain returned. Patient understood and was discharged home in good condition. Home Meds Active Scripts Minoxidil* (Lonitin*) 2.5 Mg Tab, 5 MG PO BID for 30 Days, #30 TAB Prov:SINCERE ENGLAND MD 02/26/17 Lisinopril* (Lisinopril*) 20 Mg Tablet, 20 MG PO BID for 30 Days, #60 TAB Prov:SINCERE ENGLAND MD 02/26/17 Carvedilol* (Carvedilol*) 12.5 Mg Tablet, 12.5 MG PO BID for 30 Days, #60 TAB Prov:SINCERE ENGLAND MD 02/26/17 Atorvastatin* (Atorvastatin*) 40 Mg Tablet, 40 MG PO HS for 30 Days, #30 TAB Prov:SINCERE ENGLAND MD 02/26/17 Amlodipine Besylate* (Amlodipine Besylate*) 5 Mg Tablet, 5 MG PO DAILY for 30 Days, #30 TAB Prov:SINCERE ENGLAND MD 02/26/17 Reported Medications Aspirin* (Aspirin* EC) 81 Mg Tablet.dr 81 MG PO DAILY, TAB 02/21/17 Follow-up Plan 1. Take all medications as prescribed 2. Follow up with Dr. Levi in 2-4 weeks 3. Monitor your blood pressure at home. If the top number is consistently greater than 160 or less than 90, call your base wad operator adjuster or your Primary care physician 4. Follow up with your primary care physician in 1 week 5. Monitor your blood pressure at home especially if experiencing dizziness, lightheadedness, chest pain, palpitations, or shortness of breath. 6. You will need to increase your physical activity and follow a low carb, low sugar diet and stay away from fried and greasy foods. You are considered Diabetic and will need to do life style changes mentioned with repeat A1c in 3 months prior to being started on medications 7. If your symptoms return, return to the ED Primary Care Provider Not On Staff Doctor Time spent on discharge: > 30 minutes Pending Labs Laboratory Tests Test 02/25/17 11:59 02/25/17 17:37 02/25/17 20:46 02/26/17 06:00 Bedside Glucose 137mg/dL (70-220) 103mg/dL (70-220) 149mg/dL (70-220) White Blood Count 9.910^3/ul (4.8-10.8) Red Blood Count 5.0710^6/ul (4.70-6.10) Hemoglobin 14.1g/dl (14.0-18.0) Hematocrit 44.4% (42.0-52.0) Mean Corpuscular Volume 87.6fl (82.0-101.0) Mean Corpuscular Hemoglobin 27.8pg (29.0-33.0) Mean Corpuscular Hemoglobin Concent 31.8g/dl (32.0-37.0) Red Cell Distribution Width 13.2% (11.5-14.5) Platelet Count 48200^3/UL (140-415) Mean Platelet Volume 10.0fl (7.4-10.4) Neutrophils % 61.6% (39.0-77.0) Lymphocytes % 27.9% (15.0-51.0) Monocytes % 8.1% (0.0-11.0) Eosinophils % 1.7% (0.0-7.0) Basophils % 0.6% (0.0-2.0) Nucleated Red Blood Cells % 0.0/100WBC (0.0-0.0) Neutrophils # 6.110^3/ul (1.6-7.5) Lymphocytes # 2.810^3/ul (0.8-2.9) Monocytes # 0.810^3/ul (0.3-0.9) Eosinophils # 0.210^3/ul (0.0-0.5) Basophils # 0.110^3/ul (0.0-0.1) Nucleated Red Blood Cells # 0.010^3/ul (0.0-0.0) Sodium Level 140mmol/L (135-144) Potassium Level 4.2mmol/L (3.5-5.1) Chloride Level 101mmol/L (97-110) Carbon Dioxide Level 31mmol/L (21-31) Anion Gap 12 (8-16) Blood Urea Nitrogen 12mg/dl (7-20) Creatinine 1.00mg/dl (0.61-1.24) Glucose Level 117mg/dl (70-220) Calcium Level 9.9mg/dl (8.4-10.2) Phosphorus Level 3.9mg/dl (2.5-4.9) Magnesium Level 1.9mg/dl (1.7-2.5) Albumin 3.9g/dl (3.3-4.9) Test 02/26/17 07:55 Bedside Glucose 115mg/dL (70-220) SINCERE ENGLAND MD Feb 26, 2017 11:37
== END 2017-02-26 13:46 | disposition home or self-care (01) | DRG 305 ==
LOC: E/R 18:48 → TEL 22:06
PROVIDERS: ADMIT Internal Medicine; ATTEND Internal Medicine
DX: I16.0 Hypertensive urgency (principal); I25.2 Old myocardial infarction; I16.1 Hypertensive emergency; R07.9 Chest pain, unspecified; I25.10 Atherosclerotic heart disease of native coronary artery without angina pectoris; E78.00 Pure hypercholesterolemia, unspecified; Z87.891 Personal history of nicotine dependence; Z91.19 Patient's noncompliance with other medical treatment and regimen; Z95.5 Presence of coronary angioplasty implant and graft; Z79.82 Long term (current) use of aspirin
CPT/HCPCS: 36415; 71010; 80048; 80053; 80061; 80069; 82962; 83036; 83690; 83735; 84100; 84484; 85025; 93005; 93306; 96374; 96375; J1644; J1815; J1885; J7030

== ENCOUNTER → 2017-03-12 | Outpatient (CLI) | END | disposition home or self-care (01) ==

== ENCOUNTER 2017-03-28 09:46 | Emergency (ER) | payer MEDICAID ==
[~2017-03-28] VITALS: Ht 177.8 cm; Wt 100.0 kg
[~2017-03-28 09:46] MED LIST: AMLO-145 PO; ASPI-664 PO; ATOR40TA68 PO; CARV12.579 PO; LISI20TA11 PO; MINO2.5T16 PO
[2017-03-28 10:03] VITALS: Ht 177.8 cm; Wt 100.0 kg
[2017-03-28] MEDS ORDERED: CARV12.579 PO (11:02)
[2017-03-28] MEDS ORDERED: MINO2.5T16 PO (11:02)
[2017-03-28] MEDS ORDERED: ASPI-535 PO (11:02)
[2017-03-28] MEDS ORDERED: LISI20TA11 PO (11:02)
[2017-03-28] MEDS ORDERED: AMLO5TAB4 PO (11:02)
[2017-03-28] MEDS ORDERED: ATOR40TA68 PO (11:02)
--- NOTE | 2017-03-28 11:12 | ERD ---
ER Documentation Chief Complaint Chief Complaint pt bib family with c/o needs med refill til PMD appt HPI 42-year-old male with a history of type 2 diabetes, hypertension, dyslipidemia, myocardial infarction, presents emergency department for medication refill for amlodipine, atorvastatin, carvedilol, lisinopril, minoxidil and aspirin. He received a one-month supply of these medications on February 26 but he has run out now. He has no complaints at this time, he denies headaches, dizziness, nausea, vomiting, chest pain, shortness of breath. This patient states that he was not able to get a doctor due to insurance limitations at this time. ROS All systems reviewed and are negative except as per history of present illness. Medications Home Meds Active Scripts Aspirin Ec (Aspir 81) 81 Mg Tablet.dr, 81 MG PO DAILY, #30 TAB Prov:TY BELL PA-C 03/28/17 Minoxidil* (Lonitin*) 2.5 Mg Tab, 5 MG PO DAILY, #60 TAB Prov:TY BELL PA-C 03/28/17 Lisinopril* (Lisinopril*) 20 Mg Tablet, 20 MG PO BID, #60 TAB Prov:TY BELL PA-C 03/28/17 Carvedilol* (Carvedilol*) 12.5 Mg Tablet, 12.5 MG PO BID, #60 TAB Prov:TY BELL PA-C 03/28/17 Atorvastatin* (Atorvastatin*) 40 Mg Tablet, 40 MG PO QHS, #30 TAB Prov:TY BELL PA-C 03/28/17 Amlodipine Besylate* (Norvasc*) 5 Mg Tablet, 5 MG PO DAILY, #30 TAB Prov:TY BELL PA-C 03/28/17 Minoxidil* (Lonitin*) 2.5 Mg Tab, 5 MG PO BID for 30 Days, #30 TAB Prov:SINCERE ENGLAND MD 02/26/17 Lisinopril* (Lisinopril*) 20 Mg Tablet, 20 MG PO BID for 30 Days, #60 TAB Prov:SINCERE ENGLAND MD 02/26/17 Carvedilol* (Carvedilol*) 12.5 Mg Tablet, 12.5 MG PO BID for 30 Days, #60 TAB Prov:SINCERE ENGLAND MD 02/26/17 Atorvastatin* (Atorvastatin*) 40 Mg Tablet, 40 MG PO HS for 30 Days, #30 TAB Prov:SINCERE ENGLAND MD 02/26/17 Amlodipine Besylate* (Amlodipine Besylate*) 5 Mg Tablet, 5 MG PO DAILY for 30 Days, #30 TAB Prov:SINCERE ENGLAND MD 02/26/17 Reported Medications Aspirin* (Aspirin* EC) 81 Mg Tablet.dr, 81 MG PO DAILY, TAB 02/21/17 Allergies Allergies: Coded Allergies: iodine (Verified Allergy, Unknown, 02/21/17) PMhx/Soc History of Surgery: Yes (Stent placement) Anesthesia Reaction: No Hx Neurological Disorder: No Hx Respiratory Disorders: No Hx Cardiac Disorders: Yes (Hx LA with stent placement) Hx Psychiatric Problems: No Hx Miscellaneous Medical Probl: No (neck scar from cut) Hx Alcohol Use: Yes (occasional, last Apr 2016) Hx Substance Use: No Hx Tobacco Use: Yes (quit 2011) Physical Exam Vitals Vital Signs Date Time Temp Pulse Resp B/P Pulse Ox O2 Delivery O2 Flow Rate FiO2 03/28/17 10:03 98.3 77 16 197/84 100 Physical Exam General: Well-developed, well-nourished. The patient appears in no acute distress. HEENT: Head is normocephalic, atraumatic. No scleral icterus. Neck: Supple. Nontender. Lungs: Clear to auscultation. Normal air movement. Heart: Regular rate and rhythm. S1 and S2 are normal. No murmurs, gallops, or rubs. Abdomen: Soft, nontender, nondistended. Bowel sounds are normoactive. Extremities: No clubbing or cyanosis. Normal pulses. Moving extremities x 4. No weakness. Neurologic: Alert and oriented 3. No focal deficits. Skin: Normal turgor. No rash or lesions. Procedures/MDM 42-year-old male presents for medication refill, patient has history of hypertension, dyslipidemia, DM 2, STEMI with stent placement and he is does not have a primary care doctor at this time. He will be given a list of primary care facilities from our Internet as well as our discharge instructions for primary care follow-up. Patient does have elevated blood pressure at this time , this was discussed with my attending physician Dr. Coker who agrees that the patient can be discharged home. He is asymptomatic, he does not have any clinical signs of hypertensive emergency urgency. He has not had any chest pain at this time and is here for medication refill only. He requests 2 months supply at this time, we will give him 1 month supply and to give him time to find a doctor. Patient's blood pressure was elevated (>120/80) but appears stable without evidence of hypertension emergency or urgency. The patient was counseled about the risks of hypertension and urged to pursue outpatient monitoring and therapy within a week with their primary care physician. Departure Diagnosis: Primary Impression: Encounter for medication refill Additional Impression: Hypertension Condition: Good Patient Instructions: High Blood Pressure (Hypertension) Referrals: [facility] YOU HAVE RECEIVED A MEDICAL SCREENING EXAM AND THE RESULTS INDICATE THAT YOU DO NOT HAVE A CONDITION THAT REQUIRES URGENT TREATMENT IN THE EMERGENCY DEPARTMENT. FURTHER EVALUATION AND TREATMENT OF YOUR CONDITION CAN WAIT UNTIL YOU ARE SEEN IN YOUR DOCTORS OFFICE WITHIN THE NEXT 1-2 DAYS. IT IS YOUR RESPONSIBILITY TO MAKE AN APPOINTMENT FOR FOLOW-UP CARE. IF YOU HAVE A PRIMARY DOCTOR --you should call your primary doctor and schedule an appointment IF YOU DO NOT HAVE A PRIMARY DOCTOR YOU CAN CALL OUR PHYSICIAN REFERRAL HOTLINE AT IF YOU CAN NOT AFFORD TO SEE A PHYSICIAN YOU CAN CHOSE FROM THE FOLLOWING [facility] [address] [facility]. [facility] [address] [facility] [facility] [address] [facility] [facility] [address] [facility] [facility] [address] [facility]. [facility]. [address] [facility]. [facility] YOU HAVE RECEIVED A MEDICAL SCREENING EXAM AND THE RESULTS INDICATE THAT YOU DO NOT HAVE A CONDITION THAT REQUIRES URGENT TREATMENT IN THE EMERGENCY DEPARTMENT. FURTHER EVALUATION AND TREATMENT OF YOUR CONDITION CAN WAIT UNTIL YOU ARE SEEN IN YOUR DOCTORS OFFICE WITHIN THE NEXT 1-2 DAYS. IT IS YOUR RESPONSIBILITY TO MAKE AN APPOINTMENT FOR FOLOW-UP CARE. IF YOU HAVE A PRIMARY DOCTOR --you should call your primary doctor and schedule and appointment IF YOU DO NOT HAVE A PRIMARY DOCTOR YOU CAN CALL OUR PHYSICIAN REFERRAL HOTLINE AT . IF YOU CAN NOT AFFORD TO SEE A PHYSICIAN YOU CAN CHOSE FROM THE FOLLOWING [facility] INSTITUTIONS: [facility] [address] [place] [address] [facility] [address] [place] [address] [facility] [address] [place] [address] [facility]ENT [facility]SPECIALTIES Additional Instructions: Call your primary care doctor TOMORROW for an appointment during the next 1-2 days.See the doctor sooner or return here if your condition worsens before your appointment time. TY BELL PA-C Mar 28, 2017 11:12
== END 2017-03-28 11:28 | disposition home or self-care (01) ==
LOC: FTE 09:46
DX: I10 Essential (primary) hypertension (principal); E11.9 Type 2 diabetes mellitus without complications; Z79.82 Long term (current) use of aspirin; Z98.61 Coronary angioplasty status; Z87.891 Personal history of nicotine dependence
CPT/HCPCS: 99281